=== PATIENT | female | born 1960 | race Caucasian/White ===

== ENCOUNTER → 2016-06-19 | Outpatient (CLI) | payer BC ==
[~2016-06-19] MED LIST: /GLIP10TAB PO; /PRAV20TA PO; ACET650S3 PO; ASPI81TA85 PO; LISI5TAB PO; LOPI600T PO; LOVA1CAP16 PO; LOVA1CAP17 PO; METO100T PO; OMEP10CASR PO; PRAV40TA PO; RANI150I2 IJ; RANI1TAB38 PO
[2016-06-19 12:12] LABS: MEAN CORPUSCULAR HEMOGLOBIN 31.3 pg (27.0-33.0); MEAN CORPUSCULAR HGB CONC 35.2 g/dl (32.0-36.5); RED CELL DISTRIBUTION WIDTH 13.3 % (11.5-14.5); WHITE BLOOD COUNT 12.2 K/mm3 (4.0-10.0)
[2016-06-19 12:37] LABS: ALBUMIN 4.3 GM/DL (3.2-5.2); ALBUMIN/GLOBULIN RATIO 1.23 (1.00-1.93); ALKALINE PHOSPHATASE 110 U/L (45-117); ALT/SGPT 24 U/L (12-78); ANION GAP 11 MEQ/L (8-16); AST/SGOT 12 U/L (15-37); BILIRUBIN,TOTAL 0.7 MG/DL (0.2-1.0); BLOOD UREA NITROGEN 22 MG/DL (7-18); CALCIUM LEVEL 9.9 MG/DL (8.5-10.1); CARBON DIOXIDE LEVEL 25 MEQ/L (21-32); CHLORIDE LEVEL 101 MEQ/L (98-107); CHOLESTEROL LEVEL 276 MG/DL (<200); CREATININE FOR GFR 1.13 MG/DL (0.55-1.02); GLOMERULAR FILTRATION RATE 53.4 (>51); GLUCOSE, FASTING 153 MG/DL (70-105); POTASSIUM SERUM 4.3 MEQ/L (3.5-5.1); SODIUM LEVEL 137 MEQ/L (136-145); TOTAL PROTEIN 7.8 GM/DL (6.4-8.2); TRIGLYCERIDES LEVEL 497 MG/DL (<150)
== END | disposition home or self-care (01) ==
LOC: M LAB 10:25
PROVIDERS: ATTEND Physician Assistant Medical
DX: E11.9 Type 2 diabetes mellitus without complications (principal); E78.2 Mixed hyperlipidemia; I10 Essential (primary) hypertension; R53.83 Other fatigue

== ENCOUNTER 2016-07-07 18:15 | Emergency (ER) | payer BC ==
[2016-07-07] MEDS ORDERED: ONDANSETRON 4MG/2ML VIAL (J2405) As Ordered ONE (21:19)
[2016-07-07] MEDS ORDERED: MORPHINE 4 MG/ML 1ML SYRINGE As Ordered ONE (21:19)
[2016-07-07 21:43] LABS: BASO # 0.2 K/mm3 (0.0-0.2); BASO % 1.3 % (0.0-1.0); EOS # 0.4 K/mm3 (0.0-0.50); EOS % 3.4 % (0.0-3.0); LARGE UNSTAINED CELL # 0.2 K/mm3 (0.0-0.4); LARGE UNSTAINED CELL % 1.4 % (0.0-4.0); LYMPH # 2.5 K/mm3 (1.5-4.5); LYMPH % 19.2 % (24.0-44.0); MEAN CORPUSCULAR HGB CONC 33.2 g/dl (32.0-36.5); MEAN CORPUSCULAR VOLUME 90.6 fl (80.0-96.0); MONO # 0.5 K/mm3 (0.0-0.8); MONO % 3.8 % (0.0-5.0); NEUTROPHILS # 9.4 K/mm3 (1.8-7.7); NEUTROPHILS % 70.9 % (36.0-66.0); PLATELET COUNT, AUTOMATED 196 k/mm3 (150-450); WHITE BLOOD COUNT 13.2 K/mm3 (4.0-10.0)
[2016-07-07 21:54] LABS: ADD MORPHOLOGY? YES
[2016-07-07 22:08] LABS: ALBUMIN 4.3 GM/DL (3.2-5.2); ALBUMIN/GLOBULIN RATIO 1.13 (1.00-1.93); BILIRUBIN,DIRECT 0.1 MG/DL (0.0-0.2); BILIRUBIN,TOTAL 0.4 MG/DL (0.2-1.0); CALCIUM LEVEL 9.8 MG/DL (8.5-10.1); CREATININE FOR GFR 1.46 MG/DL (0.55-1.02); GLOMERULAR FILTRATION RATE 39.7 (>51); POTASSIUM SERUM 4.3 MEQ/L (3.5-5.1); TOTAL PROTEIN 8.1 GM/DL (6.4-8.2)
[2016-07-07] MEDS ORDERED: ISOVUE-370 76% 100ML VIAL (Q9967) As Ordered ONE (23:40)
--- NOTE | 2016-07-08 00:20 | REPUSA ---
CT of the abdomen and pelvis without contrast Clinical statement: Pain. Technique: Multiple axial CT images were obtained from the base of the lungs to the floor of the pelv is utilizing 5 mm axial slices without administration of contrast. Coronal and sagittal reconstructio ns were also obtained. Comparison: 06/26/2015. Findings: Chest: The visualized lung bases are clear. Abdomen: The kidneys are normal in size bilaterally. There is mild cortical scarring in the inferior aspect of the left kidney. There is no evidence of hydronephrosis or nephrolithiasis. The liver, sple en, pancreas, gallbladder and adrenal glands are unremarkable. The aorta demonstrates normal caliber and contour. There is no abdominal lymphadenopathy or ascites. Pelvis: The bowel is unremarkable, with no obstructive or inflammatory changes. The urinary bladder i s within normal limits. There is no pelvic lymphadenopathy or ascites. The other pelvic structures ap pear unremarkable. Bones: There are no suspicious osseous abnormalities seen. Impression: Unremarkable CT examination of the abdomen and pelvis. No focal abnormality to explain th e patient's pain.
[2016-07-08] MEDS ORDERED: ONDANSETRON 4MG/2ML VIAL (J2405) As Ordered ONE (01:08)
[2016-07-08 01:36] LABS: CREATININE FOR GFR 1.3 MG/DL (0.55-1.02); GLOMERULAR FILTRATION RATE 45.4 (>51)
--- NOTE | 2016-07-08 02:32 | EDDOCDS ---
Physician Documentation [facility] Name: Ana Cristina Lazo Age: 56 yrs Sex: Female : 1960 Arrival Date: 07/07/2016 Time: 18:15 Bed I5 / M5 Private MD: Pablo Fairchild G Disposition: 07/08/16 02:14 Discharged to Home/Self Care. Impression: Unspecified abdominal pain, Abnormal finding of blood chemistry, unspecified - ELEVATED CREATININE, Nausea. - Condition is Stable. - Discharge Instructions: Abdominal Pain, Adult, Nausea, Adult. - Prescriptions for Reglan 10 mg Oral Tablet - take 1 tablet by ORAL route every 6 hours take 30 minutes before meals and at bedtime; 20 tablet. Ultram 50 mg Oral Tablet - take 1 tablet by ORAL route every 6 hours As needed MDD: 4 tabs; 10 tablet. - Medication Reconciliation, Local Pharmacy Hours form. - Follow up: Pablo Fairchild; When: Tomorrow; Reason: Recheck today's complaints, Continuance of care. - Problem is new. - Symptoms have improved. - Notes: USE MEDICATIONS INSTRUTCED, FOLLOW UP WITH YOUR DOCTOR TOMORROW, RETURN TO THE ER IF THE SYMPTOMS WORSEN OR BECOME CONCERNING Historical: - Allergies: contrast dye; - Home Meds: 1. Zofran (as hydrochloride) 4 mg Oral tab every 8 hours prn (Last dose: 07/07/2016 12:30) 2. ranitidine HCl 150 mg Oral tab 1 tab 2 times per day 3. omeprazole 20 mg Oral cpDR 1 cap once daily 4. glipizide 10 mg Oral tab 1 tab 2 times per day 5. lisinopril 10 mg Oral tab 1 tab once daily 6. gemfibrozil 600 mg Oral tab 1 tab 2 times per day 7. pravastatin 80 mg oral tab 1 tab once daily 8. Januvia 100 mg oral tab 1 tab once daily - PMHx: Diabetes - NIDDM: controlled; Hypercholesterolemia; Hypertension; pancreatitis; - PSHx: Hysterectomy; Appendectomy; Tonsillectomy; - Social history: Smoking status: Patient uses tobacco products, current every day smoker. No barriers to communication noted, The patient speaks fluent Albanian, Speaks appropriately for age. - Family history: Not pertinent. - : The pt / caregiver states he / she is not on anticoagulants. Home medication list is obtained from the patient. - Exposure Risk Screening:: None identified. 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 1 in. (154.94 cm) (R); Pain 7/10; 20:01 BP 105 / 59; Pulse 122; Resp 18; Temp 97.9(O); Pulse Ox 97% on R/A; Pain 7/10; ld5 20:03 ld5 22:15 Resp 16 S; ttb 22:24 BP 125 / 72; Pulse 78; Resp 16; Pulse Ox 100% on R/A; Pain 3/10; ttb / 02:28 BP 98 / 53; Pulse 84; Resp 18; Temp 97.1; Pulse Ox 95% on R/A; Pain 2/10; ld5 07/07 18:18 Body Mass Index 25.51 (61.23 kg, 154.94 cm) gr2 07/07 20:03 see vital record ld5 MDM: 20:15 [facility] Payment Agreement was scanned into [employer] and attached to record. gb 20:55 Financial registration complete. gb 21:07 Undress patient appropriately for examination ordered. ck7 21:07 morphine 4 mg IVP once ordered. ck7 21:07 Ondansetron 4 mg IVP once ordered. ck7 21:07 IV Saline Lock ordered. ck7 21:07 NS 0.9% 1000 ml IV at bolus once ordered. ck7 21:07 Accucheck ordered. ck7 21:08 Amylase Ordered. EDMS 21:08 Basic Metabolic Profile Ordered. EDMS 21:08 CBC with Diff Ordered. EDMS 21:08 Lipase Ordered. EDMS 21:08 Liver Profile Ordered. EDMS 21:08 Urinalysis Ordered. EDMS 21:09 Urine Culture Ordered. EDMS 21:10 NOTHING BY MOUTH+DIET ordered. EDMS 21:32 Fingerstick Blood Sugar Ordered. EDMS 21:46 Urinalysis Reviewed. ck7 21:46 Fingerstick Blood Sugar Reviewed. ck7 22:39 Basic Metabolic Profile Reviewed. ck7 22:39 CBC with Diff Reviewed. ck7 22:39 Amylase Reviewed. ck7 22:39 Lipase Reviewed. ck7 22:39 Liver Profile Reviewed. ck7 22:39 RBC MORPH PROF NO CHARGE Reviewed. ck7 23:36 NS 0.9% 1000 ml IV at bolus once ordered. ck7 23:49 CT ABD & PELVIS: No Contrast Ordered. EDMS 07/08 00:40 CT ABD & PELVIS: No Contrast Reviewed. ck7 01:06 Ondansetron 4 mg IVP once ordered. ck7 01:44 Creatinine Reviewed. ck7 Point of Care Testing: Blood Glucose: 07/07 21:27 Blood Glucose: 215 mg/dL; [facility] Ranges: Administered Medications: 21:28 Drug: NS 0.9% 1000 ml [sodium chloride 0.9 % intravenous solution] Route: IV; Rate: ttb bolus; Site: left antecubital; 07/08 00:16 Follow up: Response: No Adverse Reaction; IV Status: Completed infusion; IV Intake: ttb 1000ml 07/07 21:30 Drug: morphine 4 mg [morphine 4 mg/mL intravenous cartridge (1 mL)] Route: IVP; Site: ttb left antecubital; 22:15 Follow up: Resp 16 bpm Spontaneous; Response: Confirmed pt not driving.; No Adverse ttb Reaction; Pain is decreased 21:30 Drug: Ondansetron 4 mg [ondansetron HCl 2 mg/mL intravenous solution (2 mL)] Route: ttb IVP; Site: left antecubital; 07/08 00:16 Drug: NS 0.9% 1000 ml [sodium chloride 0.9 % intravenous solution] Route: IV; Rate: ttb bolus; Site: left antecubital; 01:11 Drug: Ondansetron 4 mg [ondansetron HCl 2 mg/mL intravenous solution (2 mL)] Route: mlc IVP; Site: left antecubital; 01:52 Follow up: Response: Nausea is decreased [facility] [place]: Dispatcher [employer] EDMS Ida Verdugo, RN RN srm Bree Arroyo, Emre Reg Jessica Tong RN RN ld5 Nadir Jacob RPA-C [id number] Levi, Johnna, RN RN ttb Jacobo, Roxanne RN mlc The chart was reviewed and I authenticate all verbal orders and agree with the evaluation and treatment provided.Corrections: (The following items were deleted from the chart) 07/07 23:50 18:28 Allergies: no known allergies; srm ttb 23:59 23:37 CT ABD & PELVIS WITH CONTRAST+CT ordered. EDMS EDMS 07/08 01:09 00:54 CREATININE+LAB ordered. EDMS EDMS Attachments: 07/07 20:15 [facility] [place] gb MTDD
--- NOTE | 2016-07-08 02:32 | EDDOCDS ---
Nurse's Notes [facility] Name: Ana Cristina Lazo Age: 56 yrs Sex: Female : 1960 Arrival Date: 07/07/2016 Time: 18:15 Bed I5 / M5 Private MD: Pablo Fairchild G Diagnosis: Unspecified abdominal pain;Abnormal finding of blood chemistry, unspecified-ELEVATED CREATININE;Nausea Presentation: 07/07 18:22 Presenting complaint: Patient states: i had a shot a week ago and i think it acted up srm my Pancrease kaylan been sick ever since. - trulicity 0.75mg/5ml was given wed for diabetes. severe belly, back pain, nausea vomiting, bloating. PMD aware and was given zofran for nausea but its not working. Acute neurological deficits are not present. Mechanism of Injury: No Mechanism of Injury. Adult Sepsis Screening: The patient does not have new or worsening altered mentation. Patient's respiratory rate is less than 22. Systolic blood pressure is greater than 100. Patient has a qSOFA score of 0- Negative Sepsis Screen. Suicide/Homicide risk assessment- the patient denies having any suicidal and/or homicidal ideations and does not present with any other emotional, behavioral or mental health complaints. Status: Patient is not a chief service observer or dependent. Transition of care: patient was not received from another setting of care. 18:22 Acuity: VERONICA Level 3 srm 18:22 Method Of Arrival: Walkin/Carried/Asstd srm Triage Assessment: 18:28 General: Appears uncomfortable, Behavior is appropriate for age, cooperative. Pain: srm Pain currently is 7 out of 10 on a pain scale. HIV screening NA for this visit Offered previously. Musculoskeletal: No deficits noted. 20:03 I have visited this patient for a triage reassessment, Pt reports no change in symptoms ld5 since ER arrival. 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 Zofran (as hydrochloride) 4 mg Oral tab every 8 hours prn (Last dose: 07/07/2016 12:30) 2. ranitidine HCl 150 mg Oral tab 1 tab 2 times per day 3. omeprazole 20 mg Oral cpDR 1 cap once daily 4. glipizide 10 mg Oral tab 1 tab 2 times per day 5. lisinopril 10 mg Oral tab 1 tab once daily 6. gemfibrozil 600 mg Oral tab 1 tab 2 times per day 7. pravastatin 80 mg oral tab 1 tab once daily 8. Januvia 100 mg oral tab 1 tab once daily - PMHx: Diabetes - NIDDM: controlled; Hypercholesterolemia; Hypertension; pancreatitis; - PSHx: Hysterectomy; Appendectomy; Tonsillectomy; - Social history: Smoking status: Patient uses tobacco products, current every day smoker. No barriers to communication noted, The patient speaks fluent [place] Zealander, Speaks appropriately for age. - Family history: Not pertinent. - : The pt / caregiver states he / she is not on anticoagulants. Home medication list is obtained from the patient. - Exposure Risk Screening:: None identified. Screenin:37 Screening information is obtained from the patient. Fall risk: No risks identified. ttb Assistance ADL's: requires no assistance with activities of daily living. Abuse/DV Screen: The patient / caregiver reports he/she is: not in a situation that causes fear, pain or injury. Nutritional screening: No deficits noted. Advance Directives: Currently, there is no health care proxy. home support is adequate. Assessment: 21:37 General: Appears uncomfortable, well nourished, well groomed, Behavior is appropriate ttb for age, cooperative, pleasant. Pain: Location: RUQ Pain currently is 7 out of 10 on a pain scale. Pain radiates to around abd into back. Cardiovascular: Heart tones S1 S2 present Chest pain is denied. Respiratory: No deficits noted. Airway is patent Respiratory effort is even, unlabored, Breath sounds are clear in right upper lobe and left upper lobe Denies cough, shortness of breath. GI: Abdomen is non- distended Bowel sounds present X 4 quads. Abd is soft X 4 quads Abd is tender to palpation in right upper quadrant Reports diarrhea, upper abdominal pain, nausea, vomiting. Derm: Skin is normal. Injury Description: No known injury. 22:30 Adult Sepsis Screening: The patient does not have new or worsening altered mentation. ttb Patient's respiratory rate is less than 22. Systolic blood pressure is greater than 100. Patient has a qSOFA score of 0- Negative Sepsis Screen. 22:50 Reassessment: Patient appears in no apparent distress at this time. Patient states ttb feeling better. Patient states symptoms have improved. pain improved after meds. Awaiting results. Resting on stretcher. . 22:50 Neurological: Level of Consciousness is awake, alert. Respiratory: No deficits noted. ttb Airway is patent. 07/08 00:58 General: Appears in no apparent distress, comfortable, Behavior is cooperative. mlc General: IV fluids infusing per order. . Pain: Denies pain. Neurological: Level of Consciousness is awake, alert, Oriented to person, place, time. Respiratory: Airway is patent Respiratory effort is even, unlabored, Respiratory pattern is regular. Derm: Skin is normal. 01:12 Reassessment: pt c/o nausea, pt medicated per order. mlc 01:52 Reassessment: Patient appears in no apparent distress at this time. Patient states mlc feeling better. pt resting comfortably in bed. resp easy/unlabored. . 02:28 General: Appears in no apparent distress. Neurological: Level of Consciousness is ld5 awake, obeys commands. Respiratory: Airway is patent Respiratory effort is even, unlabored. Vital Signs: 07/07 18:18 BP 106 / 61; Pulse 122; Resp 18 S; Temp 95.8(O); Pulse Ox 99% on R/A; Weight 61.23 kg gr2 (R); Height 5 ft. 1 in. (154.94 cm) (R); Pain 7/10; 20:01 BP 105 / 59; Pulse 122; Resp 18; Temp 97.9(O); Pulse Ox 97% on R/A; Pain 7/10; ld5 20:03 ld5 22:15 Resp 16 S; ttb 22:24 BP 125 / 72; Pulse 78; Resp 16; Pulse Ox 100% on R/A; Pain 3/10; ttb 07/08 02:28 BP 98 / 53; Pulse 84; Resp 18; Temp 97.1; Pulse Ox 95% on R/A; Pain 2/10; ld5 07/07 18:18 Body Mass Index 25.51 (61.23 kg, 154.94 cm) gr2 07/07 20:03 see vital record ld5 Vitals: 18:18 Log In Time: July 07, 2016 at 18:18. gr2 ED Course: 18:17 Patient visited by Jermaine Kendall. gr2 18:17 Patient moved to Waiting gr2 18:18 Pablo Fairchild is Private Physician. gr2 18:19 Patient visited by Jermaine Kendall. gr2 18:19 Patient moved to Pre RCE gr2 18:24 Triage Initiated srm 19:59 Patient moved to Triage 3 ld5 20:02 Patient visited by Jessica Pennington,RN. ld5 20:03 Patient visited by Jessica Pennington,RN. ld5 20:15 [facility] Payment Agreement was scanned into [employer] and attached to record. gb 20:41 Nadir Jacob RPA-C is PHCP. ck7 20:41 Domi Frazier MD is Attending Physician. ck7 20:54 Patient visited by Nadir Jacob RPA-C. ck7 21:09 Patient moved to I5 / M5 ajs 21:26 Patient visited by Nadir Jacob RPA-C. ck7 21:36 Liver Profile Sent. ttb 21:37 The patient / caregiver is instructed regarding the plan of care and ED course. ttb Accompanied by Significant Other, Patient has correct armband on for positive identification. Placed in gown. Call light in reach. 21:37 Lipase Sent. ttb 21:37 CBC with Diff Sent. ttb 21:37 Basic Metabolic Profile Sent. ttb 21:37 Amylase Sent. ttb 21:37 Inserted peripheral IV: 20gauge IV in left antecubital area and blood collected. ttb Patient tolerated the procedure well. Labs drawn. (by ED staff). Urine collected. Clean catch specimen. 21:41 Patient visited by Johnna Sims RN. ttb 22:29 Patient visited by Johnna Sims RN. ttb 23:15 Patient visited by Johnna Sims RN. ttb 23:45 Patient visited by Nadir Jacob RPA-C. ck7 07/08 00:23 Patient visited by Nadir Jacob RPA-C. ck7 00:36 CT ABD & PELVIS: No Contrast Returned. EDMS 00:54 Patient visited by Nadir Jacob RPA-C. ck7 00:58 Patient visited by Roxanne Jacobo RN. mlc 01:12 Patient visited by Roxanne Jacobo RN. mlc 01:46 Patient visited by Nadir Jacob RPA-C. ck7 01:53 Patient visited by Roxanne Jacobo RN. [facility] [place] Pablo Fairchild is Referral Physician. ck7 02:28 Discontinued lock intact, bleeding controlled, pressure dressing applied, No ld5 redness/swelling at site. No procedures done that require assistance. 02:31 Patient visited by Jessica Pennington RN. ld5 Administered Medications: 07/07 21:28 Drug: NS 0.9% 1000 ml [sodium chloride 0.9 % intravenous solution] Route: IV; Rate: ttb bolus; Site: left antecubital; 07/08 00:16 Follow up: Response: No Adverse Reaction; IV Status: Completed infusion; IV Intake: ttb 1000ml 07/07 21:30 Drug: morphine 4 mg [morphine 4 mg/mL intravenous cartridge (1 mL)] Route: IVP; Site: ttb left antecubital; 22:15 Follow up: Resp 16 bpm Spontaneous; Response: Confirmed pt not driving.; No Adverse ttb Reaction; Pain is decreased 21:30 Drug: Ondansetron 4 mg [ondansetron HCl 2 mg/mL intravenous solution (2 mL)] Route: ttb IVP; Site: left antecubital; 07/08 00:16 Drug: NS 0.9% 1000 ml [sodium chloride 0.9 % intravenous solution] Route: IV; Rate: ttb bolus; Site: left antecubital; 01:11 Drug: Ondansetron 4 mg [ondansetron HCl 2 mg/mL intravenous solution (2 mL)] Route: mlc IVP; Site: left antecubital; 01:52 Follow up: Response: Nausea is decreased [facility] [place] Care Testing: Blood Glucose: 07/07 21:27 Blood Glucose: 215 mg/dL; [facility] Ranges: Intake: 07/08 00:16 IV: 1000.00ml; Total: 1000.00ml. ttb Order Results: Lab Order: Amylase; SPEC'M 07/07/16 21:34 Test: AMYLASE; Value: 76; Range: 25-115; Units: U/L; Status: F Lab Order: Basic Metabolic Profile; SPEC'M 07/07/16 21:34 Test: GLUCOSE, FASTING; Value: 200; Range: 70-105; Abnormal: Above high normal; Units: MG/DL; Status: F Test: BLOOD UREA NITROGEN; Value: 17; Range: 7-18; Units: MG/DL; Status: F Test: CREATININE FOR GFR; Value: 1.46; Range: 0.55-1.02; Abnormal: Above high normal; Units: MG/DL; Status: F Test: GLOMERULAR FILTRATION RATE; Value: 39.7; Range: >51; Abnormal: Below low normal; Status: F Test: SODIUM LEVEL; Value: 138; Range: 136-145; Units: MEQ/L; Status: F Test: POTASSIUM SERUM; Value: 4.3; Range: 3.5-5.1; Units: MEQ/L; Status: F Test: CHLORIDE LEVEL; Value: 102; Range: 98-107; Units: MEQ/L; Status: F Test: CARBON DIOXIDE LEVEL; Value: 24; Range: 21-32; Units: MEQ/L; Status: F Test: ANION GAP; Value: 12; Range: 8-16; Units: MEQ/L; Status: F Test: CALCIUM LEVEL; Value: 9.8; Range: 8.5-10.1; Units: MG/DL; Status: F Test Note: ; Units are mL/min/1.73 m2 Chronic Kidney Disease Staging per NKF: Stage I & II GFR >=60 Normal to Mildly Decreased Stage III GFR 30-59 Moderately Decreased Stage IV GFR 15-29 Severely Decreased Stage V GFR <15 Very Little GFR Left ESRD GFR <15 on NITROGLYCERIN SUPERVISOR Lab Order: CBC with Diff; SPEC'M 07/07/16 21:34 Test: WHITE BLOOD COUNT; Value: 13.2; Range: 4.0-10.0; Abnormal: Above high normal; Units: K/mm3; Status: F Test: RED BLOOD COUNT; Value: 5.05; Range: 4.00-5.40; Units: M/mm3; Status: F Test: HEMOGLOBIN; Value: 15.2; Range: 12.0-16.0; Units: g/dl; Status: F Test: HEMATOCRIT; Value: 45.8; Range: 36.0-47.0; Units: %; Status: F Test: MEAN CORPUSCULAR VOLUME; Value: 90.6; Range: 80.0-96.0; Units: fl; Status: F Test: MEAN CORPUSCULAR HEMOGLOBIN; Value: 30.0; Range: 27.0-33.0; Units: pg; Status: F Test: MEAN CORPUSCULAR HGB CONC; Value: 33.2; Range: 32.0-36.5; Units: g/dl; Status: F Test: RED CELL DISTRIBUTION WIDTH; Value: 13.0; Range: 11.5-14.5; Units: %; Status: F Test: PLATELET COUNT, AUTOMATED; Value: 196; Range: 150-450; Units: k/mm3; Status: F Test: NEUTROPHILS %; Value: 70.9; Range: 36.0-66.0; Abnormal: Above high normal; Units: %; Status: F Test: LYMPH %; Value: 19.2; Range: 24.0-44.0; Abnormal: Below low normal; Units: %; Status: F Test: MONO %; Value: 3.8; Range: 0.0-5.0; Units: %; Status: F Test: EOS %; Value: 3.4; Range: 0.0-3.0; Abnormal: Above high normal; Units: %; Status: F Test: BASO %; Value: 1.3; Range: 0.0-1.0; Abnormal: Above high normal; Units: %; Status: F Test: LARGE UNSTAINED CELL %; Value: 1.4; Range: 0.0-4.0; Units: %; Status: F Test: NEUTROPHILS #; Value: 9.4; Range: 1.8-7.7; Abnormal: Above high normal; Units: K/mm3; Status: F Test: LYMPH #; Value: 2.5; Range: 1.5-4.5; Units: K/mm3; Status: F Test: MONO #; Value: 0.5; Range: 0.0-0.8; Units: K/mm3; Status: F Test: EOS #; Value: 0.4; Range: 0.0-0.50; Units: K/mm3; Status: F Test: BASO #; Value: 0.2; Range: 0.0-0.2; Units: K/mm3; Status: F Test: LARGE UNSTAINED CELL #; Value: 0.2; Range: 0.0-0.4; Units: K/mm3; Status: F Lab Order: Lipase; [facility]' 07/07/16 21:34 Test: LIPASE; Value: 216; Range: 73-393; Units: U/L; Status: F Lab Order: Liver Profile; [facility]' 07/07/16 21:34 Test: AST/SGOT; Value: 22; Range: 15-37; Units: U/L; Status: F Test: ALT/SGPT; Value: 30; Range: 12-78; Units: U/L; Status: F Test: ALKALINE PHOSPHATASE; Value: 113; Range: 45-117; Units: U/L; Status: F Test: BILIRUBIN,TOTAL; Value: 0.4; Range: 0.2-1.0; Units: MG/DL; Status: F Test: BILIRUBIN,DIRECT; Value: 0.1; Range: 0.0-0.2; Units: MG/DL; Status: F Test: TOTAL PROTEIN; Value: 8.1; Range: 6.4-8.2; Units: GM/DL; Status: F Test: ALBUMIN; Value: 4.3; Range: 3.2-5.2; Units: GM/DL; Status: F Test: ALBUMIN/GLOBULIN RATIO; Value: 1.13; Range: 1.00-1.93; Status: F Lab Order: Urinalysis; [facility] 07/07/16 21:13 Test: APPEARANCE, URINE; Value: HAZY; Range: CLEAR; Status: F Test: COLOR, URINE; Value: YELLOW; Range: YELLOW; Status: F Test: PH,URINE; Value: 5.0; Range: 5.0-9.0; Units: UNITS; Status: F Test: SPECIFIC GRAVITY URINE AUTO; Value: 1.015; Range: 1.002-1.035; Status: F Test: PROTEIN, URINE AUTO; Value: 1+; Range: NEGATIVE; Abnormal: Above high normal; Units: mg/dL; Status: F Test: GLUCOSE, URINE (UA) AUTO; Value: 1+; Range: NEGATIVE; Abnormal: Above high normal; Units: mg/dL; Status: F Test: KETONE, URINE AUTO; Value: NEGATIVE; Range: NEGATIVE; Units: mg/dL; Status: F Test: UROBILINOGEN, URINE AUTO; Value: 0.2; Range: 0.0-2.0; Units: mg/dL; Status: F Test: BILIRUBIN, URINE AUTO; Value: NEGATIVE; Range: NEGATIVE; Status: F Test: NITRITE, URINE AUTO; Value: NEGATIVE; Range: NEGATIVE; Status: F Test: LEUKOCYTE ESTERASE, URINE AUTO; Value: NEGATIVE; Range: NEGATIVE; Status: F Test: BLOOD, URINE BLOOD; Value: NEGATIVE; Range: NEGATIVE; Status: F Test: WBC, URINE AUTO; Value: 3; Range: 0-3; Units: /HPF; Status: F Test: RBC, URINE AUTO; Value: 1; Range: 0-3; Units: /HPF; Status: F Test: BACTERIA, URINE AUTO; Value: NEGATIVE; Range: NEGATIVE; Status: F Test: SQUAMOUS EPITHELIAL CELL UR AU; Value: 1; Range: 0-6; Units: /HPF; Status: F Test: MUCUS, URINE; Value: SMALL; Range: NEGATIVE; Status: F Test: HYALINE CAST, URINE AUTO; Value: 1; Range: 0-1; Units: /LPF; Status: F Lab Order: Fingerstick Blood Sugar; SPEC'M 07/07/16 21:12 Test: BEDSIDE GLUCOSE; Value: 215; Range: 70-105; Abnormal: Above high normal; Units: MG/DL; Status: F Lab Order: RBC MORPH PROF NO CHARGE; SPEC'M 07/07/16 21:34 Test: RBC MORPHOLOGY; Value: NORMAL; Status: F Test: PLATELET ESTIMATE; Value: NORMAL; Range: NORMAL; Status: F Lab Order: Creatinine; SPEC'M 07/08/16 00:55 Test: CREATININE FOR GFR; Value: 1.30; Range: 0.55-1.02; Abnormal: Above high normal; Units: MG/DL; Status: F Test: GLOMERULAR FILTRATION RATE; Value: 45.4; Range: >51; Abnormal: Below low normal; Status: F Test Note: ; Units are mL/min/1.73 m2 Chronic Kidney Disease Staging per NKF: Stage I & II GFR >=60 Normal to Mildly Decreased Stage III GFR 30-59 Moderately Decreased Stage IV GFR 15-29 Severely Decreased Stage V GFR <15 Very Little GFR Left ESRD GFR <15 on NITROGLYCERIN SUPERVISOR Radiology Order: CT ABD & PELVIS: No Contrast Test: CT ABD & PELVIS: No Contrast REASON FOR EXAMINATION: Abdomen Pain; ; CT of the abdomen and pelvis without contrast; Clinical statement: Pain.; Technique: Multiple axial CT images were obtained from the base of the lungs to the floor of the pelv; is utilizing 5 mm axial slices without administration of contrast. Coronal and sagittal reconstructio; ns were also obtained.; Comparison: 06/26/2015.; Findings:; Chest: The visualized lung bases are clear.; Abdomen: The kidneys are normal in size bilaterally. There is mild cortical scarring in the inferior; aspect of the left kidney. There is no evidence of hydronephrosis or nephrolithiasis. The liver, sple; en, pancreas, gallbladder and adrenal glands are unremarkable. The aorta demonstrates normal caliber; and contour. There is no abdominal lymphadenopathy or ascites.; Pelvis: The bowel is unremarkable, with no obstructive or inflammatory changes. The urinary bladder i; s within normal limits. There is no pelvic lymphadenopathy or ascites. The other pelvic structures ap; pear unremarkable.; Bones: There are no suspicious osseous abnormalities seen.; Impression: Unremarkable CT examination of the abdomen and pelvis. No focal abnormality to explain th; e patient's pain.; ; Outcome: 02:14 Discharge ordered by Provider. ck7 02:28 Discharge Assessment: Patient awake, alert and oriented x 3. No cognitive and/or ld5 functional deficits noted. Patient verbalized understanding of disposition instructions. patient administered narcotics - yes. Pt provided with safe discharge. The following High Risk Discharge criteria are identified: None. Discharged to home ambulatory. Condition: stable. Discharge instructions given to patient, Instructed on discharge instructions, follow up and referral plans. medication usage, no driving heavy equipment, Demonstrated understanding of instructions, medications, Pt was receptive of discharge instructions/ teaching. Prescriptions given X 2. CT Study completed. Property :Personal belongings accompany Pt. 02:31 Patient left the ED. ld5 Signatures: Dispatcher [employer] EDMS Ida Verdugo, RN RN Bree Figueroa, Reg Reg Jessica Tong RN RN ld5 Julia Stewart Jane, RN RN cjh Kwaczala, Christopher, RPA-C RPA-Cck7 Johnna Sims RN RN ttb Raymond Gainslee gr2 Roxanne Jacobo RN RN mlc Corrections: (The following items were deleted from the chart) 07/07 23:50 18:28 Allergies: no known allergies; [facility] ttb 07/08 01:09 00:58 CREATININE+LAB sent. mlc EDMS MTDD
--- NOTE | 2016-07-10 03:32 | EDDOCDS ---
Physician Documentation [facility] Name: Ana Cristina Lazo Age: 56 yrs Sex: Female : 1960 Arrival Date: 07/07/2016 Time: 18:15 Bed I5 / M5 Private MD: Pablo Fairchild G Disposition: 07/08/16 02:14 Discharged to Home/Self Care. Impression: Unspecified abdominal pain, Abnormal finding of blood chemistry, unspecified - ELEVATED CREATININE, Nausea. - Condition is Stable. - Discharge Instructions: Abdominal Pain, Adult, Nausea, Adult. - Prescriptions for Reglan 10 mg Oral Tablet - take 1 tablet by ORAL route every 6 hours take 30 minutes before meals and at bedtime; 20 tablet. Ultram 50 mg Oral Tablet - take 1 tablet by ORAL route every 6 hours As needed MDD: 4 tabs; 10 tablet. - Medication Reconciliation, Local Pharmacy Hours form. - Follow up: Pablo Fairchild; When: Tomorrow; Reason: Recheck today's complaints, Continuance of care. - Problem is new. - Symptoms have improved. - Notes: USE MEDICATIONS INSTRUTCED, FOLLOW UP WITH YOUR DOCTOR TOMORROW, RETURN TO THE ER IF THE SYMPTOMS WORSEN OR BECOME CONCERNING Historical: - Allergies: contrast dye; - Home Meds: 1. Zofran (as hydrochloride) 4 mg Oral tab every 8 hours prn (Last dose: 07/07/2016 12:30) 2. ranitidine HCl 150 mg Oral tab 1 tab 2 times per day 3. omeprazole 20 mg Oral cpDR 1 cap once daily 4. glipizide 10 mg Oral tab 1 tab 2 times per day 5. lisinopril 10 mg Oral tab 1 tab once daily 6. gemfibrozil 600 mg Oral tab 1 tab 2 times per day 7. pravastatin 80 mg oral tab 1 tab once daily 8. Januvia 100 mg oral tab 1 tab once daily - PMHx: Diabetes - NIDDM: controlled; Hypercholesterolemia; Hypertension; pancreatitis; - PSHx: Hysterectomy; Appendectomy; Tonsillectomy; - Social history: Smoking status: Patient uses tobacco products, current every day smoker. No barriers to communication noted, The patient speaks fluent Icelandic, Speaks appropriately for age. - Family history: Not pertinent. - : The pt / caregiver states he / she is not on anticoagulants. Home medication list is obtained from the patient. - Exposure Risk Screening:: None identified. 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 1 in. (154.94 cm) (R); Pain 7/10; 20:01 BP 105 / 59; Pulse 122; Resp 18; Temp 97.9(O); Pulse Ox 97% on R/A; Pain 7/10; ld5 20:03 ld5 22:15 Resp 16 S; ttb 22:24 BP 125 / 72; Pulse 78; Resp 16; Pulse Ox 100% on R/A; Pain 3/10; ttb / 02:28 BP 98 / 53; Pulse 84; Resp 18; Temp 97.1; Pulse Ox 95% on R/A; Pain 2/10; ld5 07/07 18:18 Body Mass Index 25.51 (61.23 kg, 154.94 cm) gr2 07/07 20:03 see vital record ld5 MDM: 20:15 [facility], [facility]1983 Payment Agreement was scanned into [employer] and attached to record. gb 20:55 Financial registration complete. gb 21:07 Undress patient appropriately for examination ordered. ck7 21:07 morphine 4 mg IVP once ordered. ck7 21:07 Ondansetron 4 mg IVP once ordered. ck7 21:07 IV Saline Lock ordered. ck7 21:07 NS 0.9% 1000 ml IV at bolus once ordered. ck7 21:07 Accucheck ordered. ck7 21:08 Amylase Ordered. EDMS 21:08 Basic Metabolic Profile Ordered. EDMS 21:08 CBC with Diff Ordered. EDMS 21:08 Lipase Ordered. EDMS 21:08 Liver Profile Ordered. EDMS 21:08 Urinalysis Ordered. EDMS 21:09 Urine Culture Ordered. EDMS 21:10 NOTHING BY MOUTH+DIET ordered. EDMS 21:32 Fingerstick Blood Sugar Ordered. EDMS 21:46 Urinalysis Reviewed. ck7 21:46 Fingerstick Blood Sugar Reviewed. ck7 22:39 Basic Metabolic Profile Reviewed. ck7 22:39 CBC with Diff Reviewed. ck7 22:39 Amylase Reviewed. ck7 22:39 Lipase Reviewed. ck7 22:39 Liver Profile Reviewed. ck7 22:39 RBC MORPH PROF NO CHARGE Reviewed. ck7 23:36 NS 0.9% 1000 ml IV at bolus once ordered. ck7 23:49 CT ABD & PELVIS: No Contrast Ordered. EDMS 07/08 00:40 CT ABD & PELVIS: No Contrast Reviewed. ck7 01:06 Ondansetron 4 mg IVP once ordered. ck7 01:44 Creatinine Reviewed. ck7 10:08 T-Sheet-- Draft Copy was scanned into [employer] and attached to record. 07/09 09:10 Urine Culture Reviewed. ml Point of Care Testing: Blood Glucose: 07/07 21:27 Blood Glucose: 215 mg/dL; [facility] Ranges: Administered Medications: 21:28 Drug: NS 0.9% 1000 ml [sodium chloride 0.9 % intravenous solution] Route: IV; Rate: ttb bolus; Site: left antecubital; 07/08 00:16 Follow up: Response: No Adverse Reaction; IV Status: Completed infusion; IV Intake: ttb 1000ml 07/07 21:30 Drug: morphine 4 mg [morphine 4 mg/mL intravenous cartridge (1 mL)] Route: IVP; Site: ttb left antecubital; 22:15 Follow up: Resp 16 bpm Spontaneous; Response: Confirmed pt not driving.; No Adverse ttb Reaction; Pain is decreased 21:30 Drug: Ondansetron 4 mg [ondansetron HCl 2 mg/mL intravenous solution (2 mL)] Route: ttb IVP; Site: left antecubital; 07/08 00:16 Drug: NS 0.9% 1000 ml [sodium chloride 0.9 % intravenous solution] Route: IV; Rate: ttb bolus; Site: left antecubital; 01:11 Drug: Ondansetron 4 mg [ondansetron HCl 2 mg/mL intravenous solution (2 mL)] Route: mlc IVP; Site: left antecubital; 01:52 Follow up: Response: Nausea is decreased [facility] [place] Signatures: Dispatcher [employer] EDSC Rc Payton MD MD ml Michelson, Staci, RN RN Bree Figueroa, Emre Reg Ed [place],RN RN ld5 Nadir Jacob, RPA-C RPA-Cck7 Johnna Sims, RN RN ttb Roxanne Jacobo RN mlc The chart was reviewed and I authenticate all verbal orders and agree with the evaluation and treatment provided.Corrections: (The following items were deleted from the chart) 07/07 23:50 18:28 Allergies: no known allergies; srm ttb 23:59 23:37 CT ABD & PELVIS WITH CONTRAST+CT ordered. EDMS EDMS 07/08 01:09 00:54 CREATININE+LAB ordered. EDMS EDMS Attachments: 07/07 20:15 [facility] Payment Agreement gb 07/08 10:08 T-Sheet-- Draft Copy gb Chart Complete MTDD
--- NOTE | 2016-07-10 03:32 | EDDOCDS ---
Physician Documentation [facility] Name: Ana Cristina Lazo Age: 56 yrs Sex: Female : 1960 Arrival Date: 07/07/2016 Time: 18:15 Bed I5 / M5 Private MD: Pablo Fairchild G Disposition: 07/08/16 02:14 Discharged to Home/Self Care. Impression: Unspecified abdominal pain, Abnormal finding of blood chemistry, unspecified - ELEVATED CREATININE, Nausea. - Condition is Stable. - Discharge Instructions: Abdominal Pain, Adult, Nausea, Adult. - Prescriptions for Reglan 10 mg Oral Tablet - take 1 tablet by ORAL route every 6 hours take 30 minutes before meals and at bedtime; 20 tablet. Ultram 50 mg Oral Tablet - take 1 tablet by ORAL route every 6 hours As needed MDD: 4 tabs; 10 tablet. - Medication Reconciliation, Local Pharmacy Hours form. - Follow up: Pablo Fairchild; When: Tomorrow; Reason: Recheck today's complaints, Continuance of care. - Problem is new. - Symptoms have improved. - Notes: USE MEDICATIONS INSTRUTCED, FOLLOW UP WITH YOUR DOCTOR TOMORROW, RETURN TO THE ER IF THE SYMPTOMS WORSEN OR BECOME CONCERNING Historical: - Allergies: contrast dye; - Home Meds: 1. Zofran (as hydrochloride) 4 mg Oral tab every 8 hours prn (Last dose: 07/07/2016 12:30) 2. ranitidine HCl 150 mg Oral tab 1 tab 2 times per day 3. omeprazole 20 mg Oral cpDR 1 cap once daily 4. glipizide 10 mg Oral tab 1 tab 2 times per day 5. lisinopril 10 mg Oral tab 1 tab once daily 6. gemfibrozil 600 mg Oral tab 1 tab 2 times per day 7. pravastatin 80 mg oral tab 1 tab once daily 8. Januvia 100 mg oral tab 1 tab once daily - PMHx: Diabetes - NIDDM: controlled; Hypercholesterolemia; Hypertension; pancreatitis; - PSHx: Hysterectomy; Appendectomy; Tonsillectomy; - Social history: Smoking status: Patient uses tobacco products, current every day smoker. No barriers to communication noted, The patient speaks fluent French, Speaks appropriately for age. - Family history: Not pertinent. - : The pt / caregiver states he / she is not on anticoagulants. Home medication list is obtained from the patient. - Exposure Risk Screening:: None identified. 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 1 in. (154.94 cm) (R); Pain 7/10; 20:01 BP 105 / 59; Pulse 122; Resp 18; Temp 97.9(O); Pulse Ox 97% on R/A; Pain 7/10; ld5 20:03 ld5 22:15 Resp 16 S; ttb 22:24 BP 125 / 72; Pulse 78; Resp 16; Pulse Ox 100% on R/A; Pain 3/10; ttb / 02:28 BP 98 / 53; Pulse 84; Resp 18; Temp 97.1; Pulse Ox 95% on R/A; Pain 2/10; ld5 07/07 18:18 Body Mass Index 25.51 (61.23 kg, 154.94 cm) gr2 07/07 20:03 see vital record ld5 MDM: 20:15 [facility] Payment Agreement was scanned into [employer] and attached to record. gb 20:55 Financial registration complete. gb 21:07 Undress patient appropriately for examination ordered. ck7 21:07 morphine 4 mg IVP once ordered. ck7 21:07 Ondansetron 4 mg IVP once ordered. ck7 21:07 IV Saline Lock ordered. ck7 21:07 NS 0.9% 1000 ml IV at bolus once ordered. ck7 21:07 Accucheck ordered. ck7 21:08 Amylase Ordered. EDMS 21:08 Basic Metabolic Profile Ordered. EDMS 21:08 CBC with Diff Ordered. EDMS 21:08 Lipase Ordered. EDMS 21:08 Liver Profile Ordered. EDMS 21:08 Urinalysis Ordered. EDMS 21:09 Urine Culture Ordered. EDMS 21:10 NOTHING BY MOUTH+DIET ordered. EDMS 21:32 Fingerstick Blood Sugar Ordered. EDMS 21:46 Urinalysis Reviewed. ck7 21:46 Fingerstick Blood Sugar Reviewed. ck7 22:39 Basic Metabolic Profile Reviewed. ck7 22:39 CBC with Diff Reviewed. ck7 22:39 Amylase Reviewed. ck7 22:39 Lipase Reviewed. ck7 22:39 Liver Profile Reviewed. ck7 22:39 RBC MORPH PROF NO CHARGE Reviewed. ck7 23:36 NS 0.9% 1000 ml IV at bolus once ordered. ck7 23:49 CT ABD & PELVIS: No Contrast Ordered. EDMS 07/08 00:40 CT ABD & PELVIS: No Contrast Reviewed. ck7 01:06 Ondansetron 4 mg IVP once ordered. ck7 01:44 Creatinine Reviewed. ck7 10:08 T-Sheet-- Draft Copy was scanned into [employer] and attached to record. 07/09 09:10 Urine Culture Reviewed. ml Point of Care Testing: Blood Glucose: 07/07 21:27 Blood Glucose: 215 mg/dL; [facility] Ranges: Administered Medications: 21:28 Drug: NS 0.9% 1000 ml [sodium chloride 0.9 % intravenous solution] Route: IV; Rate: ttb bolus; Site: left antecubital; 07/08 00:16 Follow up: Response: No Adverse Reaction; IV Status: Completed infusion; IV Intake: ttb 1000ml 07/07 21:30 Drug: morphine 4 mg [morphine 4 mg/mL intravenous cartridge (1 mL)] Route: IVP; Site: ttb left antecubital; 22:15 Follow up: Resp 16 bpm Spontaneous; Response: Confirmed pt not driving.; No Adverse ttb Reaction; Pain is decreased 21:30 Drug: Ondansetron 4 mg [ondansetron HCl 2 mg/mL intravenous solution (2 mL)] Route: ttb IVP; Site: left antecubital; 07/08 00:16 Drug: NS 0.9% 1000 ml [sodium chloride 0.9 % intravenous solution] Route: IV; Rate: ttb bolus; Site: left antecubital; 01:11 Drug: Ondansetron 4 mg [ondansetron HCl 2 mg/mL intravenous solution (2 mL)] Route: mlc IVP; Site: left antecubital; 01:52 Follow up: Response: Nausea is decreased [facility] Signatures: Dispatcher [employer] EDMD Rc Payton MD MD ml Michelson, Staci, RN RN Bree Figueroa, Emre Reg Ed [place],RN RN ld5 Nadir Jacob, RPA-C [id number] Johnna Sims, RN RN ttb Roxanne Jacobo RN mlc The chart was reviewed and I authenticate all verbal orders and agree with the evaluation and treatment provided.Corrections: (The following items were deleted from the chart) 07/07 23:50 18:28 Allergies: no known allergies; srm ttb 23:59 23:37 CT ABD & PELVIS WITH CONTRAST+CT ordered. EDMS EDMS 07/08 01:09 00:54 CREATININE+LAB ordered. EDMS EDMS Attachments: 07/07 20:15 [facility] Payment Agreement gb 07/08 10:08 T-Sheet-- Draft Copy gb Chart Complete MTDD
--- NOTE | 2016-07-10 03:33 | EDDOCDS ---
Nurse's Notes [facility] Name: Ana Cristina Lazo Age: 56 yrs Sex: Female : 1960 Arrival Date: 07/07/2016 Time: 18:15 Bed I5 / M5 Private MD: Pablo Fairchild G Diagnosis: Unspecified abdominal pain;Abnormal finding of blood chemistry, unspecified-ELEVATED CREATININE;Nausea Presentation: 07/07 18:22 Presenting complaint: Patient states: i had a shot a week ago and i think it acted up srm my Pancrease kaylan been sick ever since. - trulicity 0.75mg/5ml was given wed for diabetes. severe belly, back pain, nausea vomiting, bloating. PMD aware and was given zofran for nausea but its not working. Acute neurological deficits are not present. Mechanism of Injury: No Mechanism of Injury. Adult Sepsis Screening: The patient does not have new or worsening altered mentation. Patient's respiratory rate is less than 22. Systolic blood pressure is greater than 100. Patient has a qSOFA score of 0- Negative Sepsis Screen. Suicide/Homicide risk assessment- the patient denies having any suicidal and/or homicidal ideations and does not present with any other emotional, behavioral or mental health complaints. Status: Patient is not a slot service specialist or dependent. Transition of care: patient was not received from another setting of care. 18:22 Acuity: VERONICA Level 3 srm 18:22 Method Of Arrival: Walkin/Carried/Asstd srm Triage Assessment: 18:28 General: Appears uncomfortable, Behavior is appropriate for age, cooperative. Pain: srm Pain currently is 7 out of 10 on a pain scale. HIV screening NA for this visit Offered previously. Musculoskeletal: No deficits noted. 20:03 I have visited this patient for a triage reassessment, Pt reports no change in symptoms ld5 since ER arrival. 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 Zofran (as hydrochloride) 4 mg Oral tab every 8 hours prn (Last dose: 07/07/2016 12:30) 2. ranitidine HCl 150 mg Oral tab 1 tab 2 times per day 3. omeprazole 20 mg Oral cpDR 1 cap once daily 4. glipizide 10 mg Oral tab 1 tab 2 times per day 5. lisinopril 10 mg Oral tab 1 tab once daily 6. gemfibrozil 600 mg Oral tab 1 tab 2 times per day 7. pravastatin 80 mg oral tab 1 tab once daily 8. Januvia 100 mg oral tab 1 tab once daily - PMHx: Diabetes - NIDDM: controlled; Hypercholesterolemia; Hypertension; pancreatitis; - PSHx: Hysterectomy; Appendectomy; Tonsillectomy; - Social history: Smoking status: Patient uses tobacco products, current every day smoker. No barriers to communication noted, The patient speaks fluent Armenian, Speaks appropriately for age. - Family history: Not pertinent. - : The pt / caregiver states he / she is not on anticoagulants. Home medication list is obtained from the patient. - Exposure Risk Screening:: None identified. Screenin:37 Screening information is obtained from the patient. Fall risk: No risks identified. ttb Assistance ADL's: requires no assistance with activities of daily living. Abuse/DV Screen: The patient / caregiver reports he/she is: not in a situation that causes fear, pain or injury. Nutritional screening: No deficits noted. Advance Directives: Currently, there is no health care proxy. home support is adequate. Assessment: 21:37 General: Appears uncomfortable, well nourished, well groomed, Behavior is appropriate ttb for age, cooperative, pleasant. Pain: Location: RUQ Pain currently is 7 out of 10 on a pain scale. Pain radiates to around abd into back. Cardiovascular: Heart tones S1 S2 present Chest pain is denied. Respiratory: No deficits noted. Airway is patent Respiratory effort is even, unlabored, Breath sounds are clear in right upper lobe and left upper lobe Denies cough, shortness of breath. GI: Abdomen is non- distended Bowel sounds present X 4 quads. Abd is soft X 4 quads Abd is tender to palpation in right upper quadrant Reports diarrhea, upper abdominal pain, nausea, vomiting. Derm: Skin is normal. Injury Description: No known injury. 22:30 Adult Sepsis Screening: The patient does not have new or worsening altered mentation. ttb Patient's respiratory rate is less than 22. Systolic blood pressure is greater than 100. Patient has a qSOFA score of 0- Negative Sepsis Screen. 22:50 Reassessment: Patient appears in no apparent distress at this time. Patient states ttb feeling better. Patient states symptoms have improved. pain improved after meds. Awaiting results. Resting on stretcher. . 22:50 Neurological: Level of Consciousness is awake, alert. Respiratory: No deficits noted. ttb Airway is patent. 07/08 00:58 General: Appears in no apparent distress, comfortable, Behavior is cooperative. mlc General: IV fluids infusing per order. . Pain: Denies pain. Neurological: Level of Consciousness is awake, alert, Oriented to person, place, time. Respiratory: Airway is patent Respiratory effort is even, unlabored, Respiratory pattern is regular. Derm: Skin is normal. 01:12 Reassessment: pt c/o nausea, pt medicated per order. mlc 01:52 Reassessment: Patient appears in no apparent distress at this time. Patient states mlc feeling better. pt resting comfortably in bed. resp easy/unlabored. . 02:28 General: Appears in no apparent distress. Neurological: Level of Consciousness is ld5 awake, obeys commands. Respiratory: Airway is patent Respiratory effort is even, unlabored. Vital Signs: 07/07 18:18 BP 106 / 61; Pulse 122; Resp 18 S; Temp 95.8(O); Pulse Ox 99% on R/A; Weight 61.23 kg gr2 (R); Height 5 ft. 1 in. (154.94 cm) (R); Pain 7/10; 20:01 BP 105 / 59; Pulse 122; Resp 18; Temp 97.9(O); Pulse Ox 97% on R/A; Pain 7/10; ld5 20:03 ld5 22:15 Resp 16 S; ttb 22:24 BP 125 / 72; Pulse 78; Resp 16; Pulse Ox 100% on R/A; Pain 3/10; ttb 07/08 02:28 BP 98 / 53; Pulse 84; Resp 18; Temp 97.1; Pulse Ox 95% on R/A; Pain 2/10; ld5 07/07 18:18 Body Mass Index 25.51 (61.23 kg, 154.94 cm) gr2 07/07 20:03 see vital record ld5 Vitals: 18:18 Log In Time: July 07, 2016 at 18:18. gr2 ED Course: 18:17 Patient visited by Jermaine Kendall. gr2 18:17 Patient moved to Waiting gr2 18:18 Pablo Fairchild is Private Physician. gr2 18:19 Patient visited by Jermaine Kendall. gr2 18:19 Patient moved to Pre RCE gr2 18:24 Triage Initiated srm 19:59 Patient moved to Triage 3 ld5 20:02 Patient visited by Jessica Pennington,RN. ld5 20:03 Patient visited by Jessica Pennington,RN. ld5 20:15 [facility] Payment Agreement was scanned into Blackboard and attached to record. gb 20:41 Nadir Jacob RPA-C is PHCP. ck7 20:41 Domi Frazier MD is Attending Physician. ck7 20:54 Patient visited by Nadir Jacob RPA-C. ck7 21:09 Patient moved to I5 / M5 ajs 21:26 Patient visited by Nadir Jacob RPA-C. ck7 21:36 Liver Profile Sent. ttb 21:37 The patient / caregiver is instructed regarding the plan of care and ED course. ttb Accompanied by Significant Other, Patient has correct armband on for positive identification. Placed in gown. Call light in reach. 21:37 Lipase Sent. ttb 21:37 CBC with Diff Sent. ttb 21:37 Basic Metabolic Profile Sent. ttb 21:37 Amylase Sent. ttb 21:37 Inserted peripheral IV: 20gauge IV in left antecubital area and blood collected. ttb Patient tolerated the procedure well. Labs drawn. (by ED staff). Urine collected. Clean catch specimen. 21:41 Patient visited by Johnna iSms RN. ttb 22:29 Patient visited by Johnna Sims RN. ttb 23:15 Patient visited by Johnna Sims RN. ttb 23:45 Patient visited by Nadir Jacob RPA-C. ck7 07/08 00:23 Patient visited by Nadir Jacob RPA-C. ck7 00:36 CT ABD & PELVIS: No Contrast Returned. EDMS 00:54 Patient visited by Nadir Jacob RPA-C. ck7 00:58 Patient visited by Roxanne Jacobo RN. mlc 01:12 Patient visited by Roxanne Jacobo RN. mlc 01:46 Patient visited by Nadir Jacob RPA-C. ck7 01:53 Patient visited by Roxanne Jacobo RN. mlc 02:12 Pablo Fairchild is Referral Physician. ck7 02:28 Discontinued lock intact, bleeding controlled, pressure dressing applied, No ld5 redness/swelling at site. No procedures done that require assistance. 02:31 Patient visited by Jessica Pennington RN. ld5 10:08 T-Sheet-- Draft Copy was scanned into Blackboard and attached to record. gb Administered Medications: 07/07 21:28 Drug: NS 0.9% 1000 ml [sodium chloride 0.9 % intravenous solution] Route: IV; Rate: ttb bolus; Site: left antecubital; 07/08 00:16 Follow up: Response: No Adverse Reaction; IV Status: Completed infusion; IV Intake: ttb 1000ml 07/07 21:30 Drug: morphine 4 mg [morphine 4 mg/mL intravenous cartridge (1 mL)] Route: IVP; Site: ttb left antecubital; 22:15 Follow up: Resp 16 bpm Spontaneous; Response: Confirmed pt not driving.; No Adverse ttb Reaction; Pain is decreased 21:30 Drug: Ondansetron 4 mg [ondansetron HCl 2 mg/mL intravenous solution (2 mL)] Route: ttb IVP; Site: left antecubital; 07/08 00:16 Drug: NS 0.9% 1000 ml [sodium chloride 0.9 % intravenous solution] Route: IV; Rate: ttb bolus; Site: left antecubital; 01:11 Drug: Ondansetron 4 mg [ondansetron HCl 2 mg/mL intravenous solution (2 mL)] Route: mlc IVP; Site: left antecubital; 01:52 Follow up: Response: Nausea is decreased [facility] Testing: Blood Glucose: 07/07 21:27 Blood Glucose: 215 mg/dL; [facility] Ranges: Intake: 07/08 00:16 IV: 1000.00ml; Total: 1000.00ml. ttb Order Results: Lab Order: Amylase; SPEC'M 07/07/16 21:34 Test: AMYLASE; Value: 76; Range: 25-115; Units: U/L; Status: F Lab Order: Basic Metabolic Profile; SPEC'M 17 21:34 Test: GLUCOSE, FASTING; Value: 200; Range: 70-105; Abnormal: Above high normal; Units: MG/DL; Status: F Test: BLOOD UREA NITROGEN; Value: 17; Range: 7-18; Units: MG/DL; Status: F Test: CREATININE FOR GFR; Value: 1.46; Range: 0.55-1.02; Abnormal: Above high normal; Units: MG/DL; Status: F Test: GLOMERULAR FILTRATION RATE; Value: 39.7; Range: >51; Abnormal: Below low normal; Status: F Test: SODIUM LEVEL; Value: 138; Range: 136-145; Units: MEQ/L; Status: F Test: POTASSIUM SERUM; Value: 4.3; Range: 3.5-5.1; Units: MEQ/L; Status: F Test: CHLORIDE LEVEL; Value: 102; Range: 98-107; Units: MEQ/L; Status: F Test: CARBON DIOXIDE LEVEL; Value: 24; Range: 21-32; Units: MEQ/L; Status: F Test: ANION GAP; Value: 12; Range: 8-16; Units: MEQ/L; Status: F Test: CALCIUM LEVEL; Value: 9.8; Range: 8.5-10.1; Units: MG/DL; Status: F Test Note: ; Units are mL/min/1.73 m2 Chronic Kidney Disease Staging per NKF: Stage I & II GFR >=60 Normal to Mildly Decreased Stage III GFR 30-59 Moderately Decreased Stage IV GFR 15-29 Severely Decreased Stage V GFR <15 Very Little GFR Left ESRD GFR <15 on HAND TAPPER Lab Order: CBC with Diff; SPEC'M 07/07/16 21:34 Test: WHITE BLOOD COUNT; Value: 13.2; Range: 4.0-10.0; Abnormal: Above high normal; Units: K/mm3; Status: F Test: RED BLOOD COUNT; Value: 5.05; Range: 4.00-5.40; Units: M/mm3; Status: F Test: HEMOGLOBIN; Value: 15.2; Range: 12.0-16.0; Units: g/dl; Status: F Test: HEMATOCRIT; Value: 45.8; Range: 36.0-47.0; Units: %; Status: F Test: MEAN CORPUSCULAR VOLUME; Value: 90.6; Range: 80.0-96.0; Units: fl; Status: F Test: MEAN CORPUSCULAR HEMOGLOBIN; Value: 30.0; Range: 27.0-33.0; Units: pg; Status: F Test: MEAN CORPUSCULAR HGB CONC; Value: 33.2; Range: 32.0-36.5; Units: g/dl; Status: F Test: RED CELL DISTRIBUTION WIDTH; Value: 13.0; Range: 11.5-14.5; Units: %; Status: F Test: PLATELET COUNT, AUTOMATED; Value: 196; Range: 150-450; Units: k/mm3; Status: F Test: NEUTROPHILS %; Value: 70.9; Range: 36.0-66.0; Abnormal: Above high normal; Units: %; Status: F Test: LYMPH %; Value: 19.2; Range: 24.0-44.0; Abnormal: Below low normal; Units: %; Status: F Test: MONO %; Value: 3.8; Range: 0.0-5.0; Units: %; Status: F Test: EOS %; Value: 3.4; Range: 0.0-3.0; Abnormal: Above high normal; Units: %; Status: F Test: BASO %; Value: 1.3; Range: 0.0-1.0; Abnormal: Above high normal; Units: %; Status: F Test: LARGE UNSTAINED CELL %; Value: 1.4; Range: 0.0-4.0; Units: %; Status: F Test: NEUTROPHILS #; Value: 9.4; Range: 1.8-7.7; Abnormal: Above high normal; Units: K/mm3; Status: F Test: LYMPH #; Value: 2.5; Range: 1.5-4.5; Units: K/mm3; Status: F Test: MONO #; Value: 0.5; Range: 0.0-0.8; Units: K/mm3; Status: F Test: EOS #; Value: 0.4; Range: 0.0-0.50; Units: K/mm3; Status: F Test: BASO #; Value: 0.2; Range: 0.0-0.2; Units: K/mm3; Status: F Test: LARGE UNSTAINED CELL #; Value: 0.2; Range: 0.0-0.4; Units: K/mm3; Status: F Lab Order: Lipase; [facility] 07/07/16 21:34 Test: LIPASE; Value: 216; Range: 73-393; Units: U/L; Status: F Lab Order: Liver Profile; [facility] 07/07/16 21:34 Test: AST/SGOT; Value: 22; Range: 15-37; Units: U/L; Status: F Test: ALT/SGPT; Value: 30; Range: 12-78; Units: U/L; Status: F Test: ALKALINE PHOSPHATASE; Value: 113; Range: 45-117; Units: U/L; Status: F Test: BILIRUBIN,TOTAL; Value: 0.4; Range: 0.2-1.0; Units: MG/DL; Status: F Test: BILIRUBIN,DIRECT; Value: 0.1; Range: 0.0-0.2; Units: MG/DL; Status: F Test: TOTAL PROTEIN; Value: 8.1; Range: 6.4-8.2; Units: GM/DL; Status: F Test: ALBUMIN; Value: 4.3; Range: 3.2-5.2; Units: GM/DL; Status: F Test: ALBUMIN/GLOBULIN RATIO; Value: 1.13; Range: 1.00-1.93; Status: F Lab Order: Urinalysis; [facility] 07/07/16 21:13 Test: APPEARANCE, URINE; Value: HAZY; Range: CLEAR; Status: F Test: COLOR, URINE; Value: YELLOW; Range: YELLOW; Status: F Test: PH,URINE; Value: 5.0; Range: 5.0-9.0; Units: UNITS; Status: F Test: SPECIFIC GRAVITY URINE AUTO; Value: 1.015; Range: 1.002-1.035; Status: F Test: PROTEIN, URINE AUTO; Value: 1+; Range: NEGATIVE; Abnormal: Above high normal; Units: mg/dL; Status: F Test: GLUCOSE, URINE (UA) AUTO; Value: 1+; Range: NEGATIVE; Abnormal: Above high normal; Units: mg/dL; Status: F Test: KETONE, URINE AUTO; Value: NEGATIVE; Range: NEGATIVE; Units: mg/dL; Status: F Test: UROBILINOGEN, URINE AUTO; Value: 0.2; Range: 0.0-2.0; Units: mg/dL; Status: F Test: BILIRUBIN, URINE AUTO; Value: NEGATIVE; Range: NEGATIVE; Status: F Test: NITRITE, URINE AUTO; Value: NEGATIVE; Range: NEGATIVE; Status: F Test: LEUKOCYTE ESTERASE, URINE AUTO; Value: NEGATIVE; Range: NEGATIVE; Status: F Test: BLOOD, URINE BLOOD; Value: NEGATIVE; Range: NEGATIVE; Status: F Test: WBC, URINE AUTO; Value: 3; Range: 0-3; Units: /HPF; Status: F Test: RBC, URINE AUTO; Value: 1; Range: 0-3; Units: /HPF; Status: F Test: BACTERIA, URINE AUTO; Value: NEGATIVE; Range: NEGATIVE; Status: F Test: SQUAMOUS EPITHELIAL CELL UR AU; Value: 1; Range: 0-6; Units: /HPF; Status: F Test: MUCUS, URINE; Value: SMALL; Range: NEGATIVE; Status: F Test: HYALINE CAST, URINE AUTO; Value: 1; Range: 0-1; Units: /LPF; Status: F Lab Order: Urine Culture; SPEC'M 07/07/16 21:13 Test: URINE CULTURE; Value: <EXTERNAL COMMENT eCWMed> FULL REPORT IN LAB NOTES (eCW and Medent).; Status: F Test: URINE CULTURE; Value: URINE CULTURE RESULT SPECIMEN APPEARS CONTAMINATED; Status: F Lab Order: Fingerstick Blood Sugar; SPEC'M 07/07/16 21:12 Test: BEDSIDE GLUCOSE; Value: 215; Range: 70-105; Abnormal: Above high normal; Units: MG/DL; Status: F Lab Order: RBC MORPH PROF NO CHARGE; SPEC'M 07/07/16 21:34 Test: RBC MORPHOLOGY; Value: NORMAL; Status: F Test: PLATELET ESTIMATE; Value: NORMAL; Range: NORMAL; Status: F Lab Order: Creatinine; SPEC'M 07/08/16 00:55 Test: CREATININE FOR GFR; Value: 1.30; Range: 0.55-1.02; Abnormal: Above high normal; Units: MG/DL; Status: F Test: GLOMERULAR FILTRATION RATE; Value: 45.4; Range: >51; Abnormal: Below low normal; Status: F Test Note: ; Units are mL/min/1.73 m2 Chronic Kidney Disease Staging per NKF: Stage I & II GFR >=60 Normal to Mildly Decreased Stage III GFR 30-59 Moderately Decreased Stage IV GFR 15-29 Severely Decreased Stage V GFR <15 Very Little GFR Left ESRD GFR <15 on HAND TAPPER Radiology Order: CT ABD & PELVIS: No Contrast Test: CT ABD & PELVIS: No Contrast REASON FOR EXAMINATION: Abdomen Pain; ; CT of the abdomen and pelvis without contrast; Clinical statement: Pain.; Technique: Multiple axial CT images were obtained from the base of the lungs to the floor of the pelv; is utilizing 5 mm axial slices without administration of contrast. Coronal and sagittal reconstructio; ns were also obtained.; Comparison: 06/26/2015.; Findings:; Chest: The visualized lung bases are clear.; Abdomen: The kidneys are normal in size bilaterally. There is mild cortical scarring in the inferior; aspect of the left kidney. There is no evidence of hydronephrosis or nephrolithiasis. The liver, sple; en, pancreas, gallbladder and adrenal glands are unremarkable. The aorta demonstrates normal caliber; and contour. There is no abdominal lymphadenopathy or ascites.; Pelvis: The bowel is unremarkable, with no obstructive or inflammatory changes. The urinary bladder i; s within normal limits. There is no pelvic lymphadenopathy or ascites. The other pelvic structures ap; pear unremarkable.; Bones: There are no suspicious osseous abnormalities seen.; Impression: Unremarkable CT examination of the abdomen and pelvis. No focal abnormality to explain th; e patient's pain.; ; Outcome: 02:14 Discharge ordered by Provider. ck7 02:28 Discharge Assessment: Patient awake, alert and oriented x 3. No cognitive and/or ld5 functional deficits noted. Patient verbalized understanding of disposition instructions. patient administered narcotics - yes. Pt provided with safe discharge. The following High Risk Discharge criteria are identified: None. Discharged to home ambulatory. Condition: stable. Discharge instructions given to patient, Instructed on discharge instructions, follow up and referral plans. medication usage, no driving heavy equipment, Demonstrated understanding of instructions, medications, Pt was receptive of discharge instructions/ teaching. Prescriptions given X 2. CT Study completed. Property :Personal belongings accompany Pt. 02:31 Patient left the ED. ld5 Signatures: Dispatcher [employer] EDMS Ida Verdugo RN RN [facility] Bree Arroyo, Jessica Larson RN RN ld5 Julia Stewart Jane, RN RN [facility] Nadir Jacob, RPA-C RPA-Cck7 Johnna Sims RN RN ttb Jermaine Kendall gr2 Roxanne Jacobo RN RN [facility] Corrections: (The following items were deleted from the chart) 07/07 23:50 18:28 Allergies: no known allergies[facility] 01:09 00:58 CREATININE+LAB sent. [facility] EDMS Chart Complete MTDD
== END 2016-07-08 02:31 | disposition home or self-care (01) ==
LOC: M ED 18:15
DX: R10.9 Unspecified abdominal pain (principal); R94.4 Abnormal results of kidney function studies; R11.0 Nausea; E11.9 Type 2 diabetes mellitus without complications; E78.00 Pure hypercholesterolemia, unspecified; I10 Essential (primary) hypertension; K86.1 Other chronic pancreatitis; F17.210 Nicotine dependence, cigarettes, uncomplicated; Z79.84 Long term (current) use of oral hypoglycemic drugs; Z79.899 Other long term (current) drug therapy; Z91.041 Radiographic dye allergy status
CPT/HCPCS: 36415; 74176; 80048; 80076; 81001; 82150; 82565; 83690; 85025; 87086; 96361; 96374; 96375; 96376; 99284; J2405

== ENCOUNTER → 2017-03-01 | Outpatient (CLI) | payer BC ==
[2017-03-01 10:34] LABS: ALBUMIN/GLOBULIN RATIO 1.11 (1.00-1.93); ALKALINE PHOSPHATASE 85 U/L (45-117); ALT/SGPT 21 U/L (12-78); ANION GAP 7 MEQ/L (8-16); AST/SGOT 16 U/L (15-37); BILIRUBIN,TOTAL 0.8 MG/DL (0.2-1.0); BLOOD UREA NITROGEN 17 MG/DL (7-18); CALCIUM LEVEL 8.7 MG/DL (8.5-10.1); CARBON DIOXIDE LEVEL 30 MEQ/L (21-32); CHLORIDE LEVEL 102 MEQ/L (98-107); CHOLESTEROL LEVEL 264 MG/DL (<200); CREATININE FOR GFR 0.98 MG/DL (0.55-1.02); GLOMERULAR FILTRATION RATE > 60.0 (>51); GLUCOSE, FASTING 98 MG/DL (70-105); POTASSIUM SERUM 4.4 MEQ/L (3.5-5.1); SODIUM LEVEL 139 MEQ/L (136-145); TOTAL PROTEIN 7.6 GM/DL (6.4-8.2); TRIGLYCERIDES LEVEL 207 MG/DL (<150)
[2017-03-01 10:54] LABS: MEAN CORPUSCULAR HEMOGLOBIN 29.4 pg (27.0-33.0); MEAN CORPUSCULAR HGB CONC 32.5 g/dl (32.0-36.5); MEAN CORPUSCULAR VOLUME 90.4 fl (80.0-96.0); RED CELL DISTRIBUTION WIDTH 14.4 % (11.5-14.5)
== END ==
LOC: M LAB 09:11
PROVIDERS: ATTEND Physician Assistant Medical
DX: R53.83 Other fatigue (principal)

== ENCOUNTER 2018-03-10 15:42 | Emergency (ER) | payer BC ==
[2018-03-10 16:30] LABS: BASO # 0.1 10^3/uL (0.0-0.2); EOS # 0.6 10^3/uL (0.0-0.50); HEMATOCRIT 40.2 % (36.0-47.0); HEMOGLOBIN 13.7 g/dl (12.0-15.5); IMMATURE GRANULOCYTE % 0.4 % (0-3.0); LYMPH # 3.2 10^3/uL (1.5-4.5); LYMPH % 33.2 % (24.0-44.0); MEAN CORPUSCULAR HEMOGLOBIN 30.9 pg (27.0-33.0); MEAN CORPUSCULAR HGB CONC 34.1 g/dl (32.0-36.5); MEAN CORPUSCULAR VOLUME 90.5 fl (80.0-96.0); MONO # 0.7 10^3/uL (0.0-0.8); MONO % 7.3 % (0.0-5.0); NEUTROPHILS % 52.1 % (36.0-66.0); PLATELET COUNT, AUTOMATED 217 10^3/uL (150-450); RED BLOOD COUNT 4.44 10^6/uL (4.00-5.40); RED CELL DISTRIBUTION WIDTH 13.5 % (11.5-14.5); WHITE BLOOD COUNT 9.7 10^3/uL (4.0-10.0)
[2018-03-10] MEDS: NS 1,000 ML IV (16:44)
[2018-03-10 16:56] LABS: ALBUMIN 4.2 GM/DL (3.2-5.2); ALBUMIN/GLOBULIN RATIO 1.11 (1.00-1.93); ALKALINE PHOSPHATASE 101 U/L (45-117); ALT/SGPT 24 U/L (12-78); AMYLASE 77 U/L (25-115); ANION GAP 9 MEQ/L (8-16); AST/SGOT 20 U/L (7-37); BILIRUBIN,DIRECT < 0.1 MG/DL (0.0-0.2); BILIRUBIN,TOTAL 0.2 MG/DL (0.2-1.0); BLOOD UREA NITROGEN 20 MG/DL (7-18); CALCIUM LEVEL 9.2 MG/DL (8.5-10.1); CARBON DIOXIDE LEVEL 24 MEQ/L (21-32); CHLORIDE LEVEL 107 MEQ/L (98-107); CREATININE FOR GFR 1.19 MG/DL (0.55-1.30); GLOMERULAR FILTRATION RATE 50.1 (>51); GLUCOSE, FASTING 96 MG/DL (70-100); LIPASE 205 U/L (73-393); POTASSIUM SERUM 4.1 MEQ/L (3.5-5.1); SODIUM LEVEL 140 MEQ/L (136-145)
[2018-03-10] MEDS ORDERED: ISOVUE-370 76% 100ML VIAL (Q9967) As Ordered (17:04)
== END 2018-03-10 18:27 | disposition home or self-care (01) ==
LOC: M ED 15:42
DX: K27.9 Peptic ulcer, site unspecified, unspecified as acute or chronic, without hemorrhage or perforation (principal); K21.9 Gastro-esophageal reflux disease without esophagitis; F41.9 Anxiety disorder, unspecified; Z87.19 Personal history of other diseases of the digestive system; F17.210 Nicotine dependence, cigarettes, uncomplicated
CPT/HCPCS: Q9967

== ENCOUNTER → 2019-01-30 | Outpatient (CLI) | payer BC ==
[~2019-01-30] MED LIST changes: -/PRAV20TA PO; +CARA1TAB6 PO; +PRAV1TAB39 PO; +PROT1TAB2 PO
[2019-01-30 11:42] LABS: BASO # 0.1 10^3/uL (0.0-0.2); BASO % 1.1 % (0.0-1.0); EOS # 0.5 10^3/uL (0.0-0.50); EOS % 6.6 % (0.0-3.0); HEMATOCRIT 42.7 % (36.0-47.0); HEMOGLOBIN 14.1 g/dl (12.0-15.5); LYMPH # 2.9 10^3/uL (1.5-4.5); LYMPH % 38.4 % (24.0-44.0); MEAN CORPUSCULAR VOLUME 93.8 fl (80.0-96.0); MONO # 0.6 10^3/uL (0.0-0.8); MONO % 8.2 % (0.0-5.0); NEUTROPHILS # 3.4 10^3/uL (1.8-7.7); NEUTROPHILS % 45.4 % (36.0-66.0); PLATELET COUNT, AUTOMATED 182 10^3/uL (150-450); RED BLOOD COUNT 4.55 10^6/uL (4.00-5.40); WHITE BLOOD COUNT 7.4 10^3/uL (4.0-10.0)
[2019-01-30 11:57] LABS: HEMOGLOBIN A1c 7.9 %
[2019-01-30 12:21] LABS: ALBUMIN 3.9 GM/DL (3.2-5.2); BILIRUBIN,TOTAL 0.4 MG/DL (0.2-1.0); CALCIUM LEVEL 9.9 MG/DL (8.5-10.1); CHOLESTEROL RISK RATIO 5.562 (<5); CREATININE FOR GFR 1.08 MG/DL (0.55-1.30); GLOMERULAR FILTRATION RATE 55.9 (>51); POTASSIUM SERUM 4.3 MEQ/L (3.5-5.1); THYROID STIMULATING HORMONE 1.58 uIU/ML (0.358-3.740); THYROXINE (T4) 6.8 UG/DL (4.5-12.0); TOTAL PROTEIN 7.5 GM/DL (6.4-8.2)
== END ==
LOC: M LRY 09:37
PROVIDERS: ATTEND Nurse Practitioner Adult Health
DX: E11.9 Type 2 diabetes mellitus without complications (principal); E79.2 Myoadenylate deaminase deficiency; Z79.899 Other long term (current) drug therapy

== ENCOUNTER 2019-03-02 11:50 | Emergency (ER) | payer BC ==
[~2019-03-02] VITALS: Ht 162.6 cm; Wt 60.6 kg
[2019-03-02] MEDS ORDERED: METF500T13 (12:59)
[2019-03-02] MEDS ORDERED: KETOROLAC 30 MG/ML VIAL (J1885) IV ONE (13:30)
[2019-03-02 14:24] LABS: HEMATOCRIT 41.8 % (36.0-47.0); HEMOGLOBIN 13.9 g/dl (12.0-15.5); MEAN CORPUSCULAR HEMOGLOBIN 30.5 pg (27.0-33.0); MEAN CORPUSCULAR HGB CONC 33.3 g/dl (32.0-36.5); MEAN CORPUSCULAR VOLUME 91.9 fl (80.0-96.0); PLATELET COUNT, AUTOMATED 199 10^3/uL (150-450); RED BLOOD COUNT 4.55 10^6/uL (4.00-5.40); WHITE BLOOD COUNT 9.7 10^3/uL (4.0-10.0)
--- NOTE | 2019-03-02 14:25 | REP ---
ULTRASOUND RIGHT FLANK SOFT TISSUES: Real-time sonographic evaluation of the right flank soft tissues performed at an area of swelling. No cystic or solid nodule is seen. No fluid collection is seen. IMPRESSION: Negative ultrasound right flank soft tissues. Electronically Signed by Chan Fonseca MD 03/02/2019 04:56 P
[2019-03-02 14:53] LABS: ALT/SGPT 38 U/L (12-78); BILIRUBIN,DIRECT < 0.1 MG/DL (0.0-0.2); BILIRUBIN,TOTAL 0.3 MG/DL (0.2-1.0); LIPASE 219 U/L (73-393); TOTAL PROTEIN 7.4 GM/DL (6.4-8.2)
[2019-03-02] MEDS: GASTROGRAFIN SOLUTION 30ML PO SCH ×2 (15:10→15:11)
--- NOTE | 2019-03-02 17:24 | REP ---
CT ABDOMEN AND PELVIS WITH ORAL CONTRAST: CT abdomen and pelvis performed with oral contrast, but no IV contrast. Sagittal and coronal reconstruction images are performed. Visualized lung bases demonstrate no evidence of infiltrate. The liver demonstrates diffuse fatty infiltration. Gallbladder is grossly unremarkable. There is no definite biliary dilatation. The spleen is normal in size. Adrenals and pancreas appear grossly unremarkable. There is no hydronephrosis bilaterally. There is focal atrophy of the lower pole of the left kidney with a cyst at that location approximately 1.2 cm in diameter. There is moderate atherosclerotic calcification of the abdominal aorta without aneurysm. There is no adenopathy. There is no free air or free fluid. There is no bowel wall thickening. There is mild sigmoid diverticulosis without acute diverticulitis. There is no abdominal wall hernia. Urinary bladder is mildly distended and grossly unremarkable. No pelvic mass is seen. The patient has had a hysterectomy. IMPRESSION: No acute abnormalities. No abdominal wall hernia. Fatty infiltration of the liver. Focal atrophy and small cyst lower pole left kidney. Mild sigmoid diverticulosis without acute diverticulitis. No free air or free fluid. Electronically Signed by Chan Fonseca MD 03/03/2019 04:34 P
[2019-03-02 17:37] VITALS: BP 143/73
== END 2019-03-02 17:42 | disposition home or self-care (01) ==
LOC: M ED 11:50
DX: S39.011A Strain of muscle, fascia and tendon of abdomen, initial encounter (principal); X50.0XXA Overexertion from strenuous movement or load, initial encounter; Y92.9 Unspecified place or not applicable; R14.0 Abdominal distension (gaseous); K57.30 Diverticulosis of large intestine without perforation or abscess without bleeding; K76.0 Fatty (change of) liver, not elsewhere classified; N28.1 Cyst of kidney, acquired; E11.9 Type 2 diabetes mellitus without complications; I10 Essential (primary) hypertension; K27.9 Peptic ulcer, site unspecified, unspecified as acute or chronic, without hemorrhage or perforation; E78.5 Hyperlipidemia, unspecified; N80.8 Other endometriosis; Z78.0 Asymptomatic menopausal state; Z88.8 Allergy status to other drugs, medicaments and biological substances; Z79.899 Other long term (current) drug therapy
CPT/HCPCS: 74176; 76705; 80047; 80076; 83690; 85027; 99283; Q9963

== ENCOUNTER → 2019-08-17 | Outpatient (CLI) | payer OTHER ==
[~2019-08-17] MED LIST changes: +METF500T13
--- NOTE | 2019-08-17 12:56 | REP ---
Right ribs series five views: There is no rib fracture or other rib abnormality. There is no focal or diffuse pleural thickening. Impression: Negative right ribs series. PA chest: Comparison is 03/10/2018. There is no pneumothorax, hemothorax or pulmonary contusion. Lung miller are clear. Cardiac size is normal. The ben, mediastinum, skeletal structures are unremarkable. There is no interval change. Impression: Negative PA chest. Electronically Signed by Chan Terrazas MD 08/17/2019 12:47 P
== END ==
LOC: M LRY 12:27
PROVIDERS: ATTEND Physician Assistant
DX: S20.211A Contusion of right front wall of thorax, initial encounter (principal); X58.XXXA Exposure to other specified factors, initial encounter; Y92.89 Other specified places as the place of occurrence of the external cause

== ENCOUNTER → 2020-05-07 | Outpatient (CLI) | payer BC ==
[~2020-05-07] MED LIST changes: -ASPI81TA85 PO; +ASPI81TA86 PO
--- NOTE | 2020-05-07 16:44 | REPMRS ---
Patient History The patient states she had a clinical breast exam in 05/2020. Patient is postmenopausal. Family history of breast cancer at age 50 or over in mother. Benign ultrasound-guided core biopsy of the left breast, October 10, 2014. Took hormonal contraceptives for 2 years. Digital Woman Screen Mammo: May 07, 2020 - Exam #: [id number] Bilateral CC and MLO view(s) were taken. Technologist: Zena Wooten, Technologist Prior study comparison: June 12, 2015, left breast digital mammo diagnostic unilateral, performed at [facility]. October 02, 2014, left breast digital mammo diagnostic unilateral, performed at [facility]. FINDINGS: There are scattered fibroglandular densities. The Volpara volumetric breast density category is:B. Two needle biopsy marker clips are again noted in the left breast. There has been no change in the appearance of the mammogram from the prior studies. There is a mild amount of scattered fibroglandular density which is fairly symmetric. There is no interval development of dominant mass, architectural distortion, or grouped microcalcification suggestive of malignancy. 3-D tomosynthesis shows no additional findings. Assessment: BI-RADS/ACR category 2 mammogram. Benign Findings. Recommendation Routine screening mammogram of both breasts in 1 year (for women over age 40). This patient's [facility] Lifetime Breast Cancer Risk is estimated at 10.0 %. This mammogram was interpreted with the aid of an FDA-approved computer-aided dectection system. Electronically Signed By: Leodan Yanes MD 05/07/20 [id number]
== END ==
LOC: M WHC 12:59
PROVIDERS: ATTEND Nurse Practitioner Family
DX: Z12.31 Encounter for screening mammogram for malignant neoplasm of breast (principal); Z80.3 Family history of malignant neoplasm of breast; Z86.018 Personal history of other benign neoplasm; Z97.8 Presence of other specified devices

== ENCOUNTER → 2021-03-07 | Outpatient (CLI) | payer OTHER ==
--- NOTE | 2021-03-10 08:27 | REP ---
INDICATION: WEDGE COMPRESSION FX. Repeat dictation. Preliminary report is provided at the time of the exam by saturnino RODRIGUEZ. COMPARISON: Comparison is made with images from chest CT study November 21, 2020. TECHNIQUE: Sagittal and axial T1 and T2-weighted scans are acquired in the usual fashion with and without fat saturation. Sequences include spin echo, turbo spin-echo, and STIR imaging sequences. FINDINGS: Thoracic vertebral body heights are preserved. Alignment is normal. Cortical and medullary bone signal intensity are normal. No bony destructive lesion is seen. There is a Schmorl's node in the inferior endplate of the T11 vertebral body. Small Schmorl's nodes are also visible at T8 and T7. There are degenerative disc changes at multiple levels. There are multiple focal disc protrusions. At the T7-8 level, there is a right posterior focal disc protrusion flattening the right ventral margin of the cord with associated spurring. No spinal stenosis. At T8-9, there is also a right posterior focal disc protrusion indenting and subtly flattening the right ventral lateral margin of the cord. No spinal stenosis. At T9-10 there is a left posterior disc bulge effacing the ventral subarachnoid space. No other focal disc protrusion is seen. No neural foraminal lesion is seen. IMPRESSION: Right posterior disc protrusions at T7-8 and T8-9. Left posterior disc bulge at T9-10. <Electronically signed by Leodan Yanes > 03/10/21 [id number]
--- NOTE | 2021-03-10 08:44 | REP ---
INDICATION: WEDGE COMPRESSION FX. Repeat dictation. Preliminary report is provided at the time of the exam by saturnino MAHAJAN. COMPARISON: Comparison lumbar spine radiographs are from March 22, 2019. TECHNIQUE: Sagittal and axial T1 and T2-weighted scans are acquired in the usual fashion with and without fat saturation. Sequences include spin echo, turbo spin-echo, and STIR imaging sequences. FINDINGS: Lumbar vertebral body heights are preserved. Alignment is normal. Cortical and medullary bone signal intensity are normal. No bony destructive lesion is seen. The tip of the conus medullaris is normal in position and appearance at T12-L1. There is a left renal cyst measuring 2 cm in greatest diameter noted incidentally. Normal caliber aorta. No other extra vertebral abnormality is observed. Axial and sagittal images taken at L1-2 are unremarkable. At L2-3, there is mild degenerative narrowing of the disc and minimal central disc bulging. No other abnormality. At L3-4, there is discogenic spurring anteriorly and mild narrowing of the disc is seen. No spinal stenosis, focal disc protrusion, or foraminal narrowing is seen. At L4-5, there is mild facet hypertrophy bilaterally. No neural foraminal narrowing or spinal stenosis is noted. No disc protrusion is seen. At L5-S1, there is a small focal disc protrusion centrally indenting the ventral margin of the thecal sac slightly. No spinal stenosis or foraminal narrowing is seen. There is facet hypertrophy bilaterally. IMPRESSION: Degenerative spondylosis changes. Small central focal disc protrusion at L5-S1. No spinal stenosis or foraminal narrowing seen. <Electronically signed by Leodan Yanes > 03/10/21 [id number]
== END ==
LOC: M PLAIMG 14:14
PROVIDERS: ATTEND Physician Assistant Surgical
DX: R93.7 Abnormal findings on diagnostic imaging of other parts of musculoskeletal system (principal); S22.080A Wedge compression fracture of T11-T12 vertebra, initial encounter for closed fracture

== ENCOUNTER → 2021-04-08 | Outpatient (CLI) | payer BC ==
--- NOTE | 2021-04-08 15:50 | REP ---
INDICATION: OTH DISC DEGENERATION, R/O OCCULT FX. COMPARISON: None TECHNIQUE: 3T multiplanar MRI imaging of the sacrococcygeal region was obtained using various sequences. FINDINGS: The cortical and marrow signal seen throughout the sacrum and coccyx is within normal limits. There is no evidence of a mass or mass effect. There is no evidence of abnormal pre sacral signal or fluid. The sacroiliac joints are within normal limits. There is no abnormal fluid or signal. The surrounding musculature is within normal limits. There is mild to moderate bilateral L5-S1 facet joint DJD. Although not performed for the lumbar spine there is evidence of disc hydration loss at L5-S1 consistent with chronic change. IMPRESSION: No acute abnormalities identified. Findings as described above. <Electronically signed by Keyur Manning > 04/08/21 [id number]
== END ==
LOC: M PLAIMG 08:53
PROVIDERS: ATTEND Physician Assistant Surgical
DX: M51.34 Other intervertebral disc degeneration, thoracic region (principal)

== ENCOUNTER → 2021-07-14 | Outpatient (CLI) | payer BC | LOC: M RAD 13:21 | PROVIDERS: ATTEND Nurse Practitioner Family | DX: R05.3 Chronic cough (principal) ==

== ENCOUNTER → 2021-08-25 | Outpatient (CLI) | payer BC | LOC: M RAD 13:33 | PROVIDERS: ATTEND Nurse Practitioner Family | DX: M54.59 Other low back pain (principal) ==

== ENCOUNTER → 2021-09-23 | Outpatient (CLI) | payer BC | LOC: M PLAIMG 10:04 | PROVIDERS: ATTEND Nurse Practitioner Family | DX: M54.50 Low back pain, unspecified (principal) ==

== ENCOUNTER → 2021-10-01 | Outpatient (CLI) | payer BC ==
[~2021-10-01] MED LIST changes: +ALBU8.5H INH; +ALLE10TA28 PO; +FLUT1BLS8 INH; +LISI10TA22 PO; -METF500T13; +METF500T13 PO; +PIOG1TAB36 PO; +TOUJ1.2I SC; +vitafusion PO
== END ==
LOC: M LABSMTC 11:49
PROVIDERS: ATTEND Anesthesiology
DX: Z01.818 Encounter for other preprocedural examination (principal); Z11.52 Encounter for screening for COVID-19

== ENCOUNTER 2021-10-06 08:24 | Day surgery (SDC) | payer BC ==
[~2021-10-06] VITALS: Ht 152.4 cm; Wt 60.2 kg
[~2021-10-06 08:24] MED LIST changes: +NS 1,000 ML IV ONE
[2021-10-06] MEDS ORDERED: fentaNYL 100 MCG/2 ML INJECTION As Ordered ONE (09:36)
[2021-10-06] MEDS ORDERED: propofoL 500 MG/50 ML VIAL As Ordered ONE (09:40)
[2021-10-06] MEDS ORDERED: LIDOCAINE 2% 100MG/5ML SDV (FOR ANES.) As Ordered ONE (10:00)
[2021-10-06] MEDS ORDERED: propofoL 200 MG/20 ML VIAL As Ordered ONE (10:11)
[2021-10-06 11:01] VITALS: BP 135/86
== END 2021-10-06 11:02 | disposition home or self-care (01) ==
LOC: M OPP 08:24
PROVIDERS: ATTEND Internal Medicine Gastroenterology
DX: Z12.11 Encounter for screening for malignant neoplasm of colon (principal); K63.5 Polyp of colon; K64.8 Other hemorrhoids; K21.00 Gastro-esophageal reflux disease with esophagitis, without bleeding; K29.70 Gastritis, unspecified, without bleeding; K22.70 Barrett's esophagus without dysplasia; R12 Heartburn; K74.60 Unspecified cirrhosis of liver; G47.30 Sleep apnea, unspecified; Z79.4 Long term (current) use of insulin; Z79.51 Long term (current) use of inhaled steroids; Z79.899 Other long term (current) drug therapy; Z88.8 Allergy status to other drugs, medicaments and biological substances; Z80.51 Family history of malignant neoplasm of kidney; Z85.3 Personal history of malignant neoplasm of breast; Z80.6 Family history of leukemia; Z87.891 Personal history of nicotine dependence
CPT/HCPCS: 43239; 45385; 88305; J3010

== ENCOUNTER 2022-06-18 08:36 | Emergency (ER) | payer BC ==
[~2022-06-18] VITALS: Ht 154.9 cm; Wt 62.2 kg
[~2022-06-18 08:36] MED LIST changes: -NS 1,000 ML IV ONE
[2022-06-18 13:34] LABS: BASO % 0.6 % (0.0-1.0); EOS # 0.3 10^3/uL (0.0-0.5); HEMOGLOBIN 14.2 g/dl (12.0-15.5); LYMPH # 1.6 10^3/uL (1.5-5.0); LYMPH % 22.2 % (24.0-44.0); MEAN CORPUSCULAR HEMOGLOBIN 29.7 pg (27.0-33.0); MEAN CORPUSCULAR HGB CONC 32.3 g/dl (32.0-36.5); MEAN CORPUSCULAR VOLUME 92.1 fl (80.0-96.0); MONO # 0.4 10^3/uL (0.0-0.8); MONO % 5.9 % (2.0-8.0); NEUTROPHILS # 4.9 10^3/uL (1.5-8.5); PLATELET COUNT, AUTOMATED 240 10^3/uL (150-450); RED BLOOD COUNT 4.78 10^6/uL (4.00-5.40); WHITE BLOOD COUNT 7.3 10^3/uL (4.0-10.0)
[2022-06-18 13:58] LABS: MAGNESIUM LEVEL 2.1 MG/DL (1.8-2.4)
[2022-06-18 13:59] LABS: CALCIUM LEVEL 10.5 MG/DL (8.3-10.6); CREATININE FOR GFR 1.15 MG/DL (0.55-1.30); GLOMERULAR FILTRATION RATE 51.2 (>45); POTASSIUM SERUM 4.7 MMOL/L (3.5-5.1)
[2022-06-18] MEDS ORDERED: CLIN1GEL22 TOP (14:44)
[2022-06-18 14:55] VITALS: BP 136/63
== END 2022-06-18 15:20 | disposition home or self-care (01) ==
LOC: M ED 08:36
DX: M43.07 Spondylolysis, lumbosacral region (principal); M54.17 Radiculopathy, lumbosacral region; M54.42 Lumbago with sciatica, left side; E11.9 Type 2 diabetes mellitus without complications; I10 Essential (primary) hypertension; E78.5 Hyperlipidemia, unspecified; J45.909 Unspecified asthma, uncomplicated; K21.9 Gastro-esophageal reflux disease without esophagitis; Z88.1 Allergy status to other antibiotic agents; Z87.891 Personal history of nicotine dependence; Z79.84 Long term (current) use of oral hypoglycemic drugs; Z79.51 Long term (current) use of inhaled steroids

== ENCOUNTER → 2022-07-07 | Outpatient (CLI) | payer BC ==
[~2022-07-07] MED LIST changes: +CLIN1GEL22 TOP
== END ==
LOC: M RAD 13:23
PROVIDERS: ATTEND Nurse Practitioner Family
DX: Z87.891 Personal history of nicotine dependence (principal)

== ENCOUNTER → 2022-12-15 | Outpatient (CLI) | payer BC | LOC: M WHC 10:03 | PROVIDERS: ATTEND Nurse Practitioner Family | DX: Z12.31 Encounter for screening mammogram for malignant neoplasm of breast (principal) ==

== ENCOUNTER → 2023-12-15 | Outpatient (CLI) | payer BC | LOC: M RAD 13:02 | PROVIDERS: ATTEND Registered Nurse | DX: Z87.891 Personal history of nicotine dependence (principal) ==

== ENCOUNTER → 2024-02-25 | Outpatient (CLI) | payer BC | LOC: M RAD 14:26 | PROVIDERS: ATTEND Registered Nurse | DX: J01.90 Acute sinusitis, unspecified (principal) ==

== ENCOUNTER → 2024-09-18 | Outpatient (CLI) | payer BC, MEDICAID, OTHER, SELFPAY ==
[2024-09-18 11:02] LABS: HEMOGLOBIN A1c 6.8 % (4.0-6.0)
[2024-09-18 11:20] LABS: ALBUMIN 3.8 G/DL (3.2-5.2); BILIRUBIN,TOTAL 0.6 MG/DL (0.3-1.2); CALCIUM LEVEL 9.6 MG/DL (8.3-10.6); CHOLESTEROL RISK RATIO 3.49 (<5); GLOMERULAR FILTRATION RATE 63.7 (>45); HDL CHOLESTEROL 53.2 MG/DL (>40); LDL CHOLESTEROL 99.6 MG/DL (<100); NON-HDL-C 132.8 MG/DL; POTASSIUM SERUM 4.3 MMOL/L (3.5-5.1); TOTAL PROTEIN 6.9 G/DL (5.7-8.2)
== END ==
LOC: M LAB 09:53
PROVIDERS: ATTEND Registered Nurse
DX: E11.65 Type 2 diabetes mellitus with hyperglycemia (principal)

== ENCOUNTER → 2025-04-06 | Outpatient (CLI) | payer OTHER ==
[~2025-04-06] MED LIST changes: +BENZ200C70 PO; +CETI10CH PO; +CLIN-250 PO; +DOXY100T PO; +PRED20TA PO
== END ==
LOC: M RAD 14:10
PROVIDERS: ATTEND Registered Nurse
DX: R05.9 Cough, unspecified (principal)

== ENCOUNTER 2025-04-30 09:21 | Emergency (ER) | payer OTHER ==
[~2025-04-30] VITALS: Ht 152.4 cm; Wt 65.9 kg
[2025-04-30 10:15] LABS: KETONE, URINE AUTO RFX NEGATIVE (NEGATIVE); LEUKOCYTE ESTERASE UR AUTO RFX NEGATIVE (NEGATIVE); NITRITE, URINE AUTO RFX NEGATIVE (NEGATIVE); RBC, URINE AUTO RFX 0 /HPF (0-3); SQUAM EPITHELIAL CELL UR AURFX 0 /HPF (0-6); WBC, URINE AUTO RFX 0 /HPF (0-3)
[2025-04-30] MEDS: NS (Normal Saline) 0.9% 1,000 ML IV ONE (11:50)
[2025-04-30 11:59] LABS: BASO # 0.1 10^3/uL (0.0-0.2); BASO % 1.2 % (0.0-1.0); EOS # 0.6 10^3/uL (0.0-0.5); EOS % 8.3 % (0.0-3.0); LYMPH # 2.2 10^3/uL (1.5-5.0); LYMPH % 33.0 % (24.0-44.0); MONO # 0.6 10^3/uL (0.0-0.8); MONO % 8.4 % (2.0-8.0); NEUTROPHILS # 3.3 10^3/uL (1.5-8.5); NEUTROPHILS % 48.8 % (36.0-66.0); PLATELET COUNT, AUTOMATED 200 10^3/uL (150-450)
[2025-04-30] MEDS ORDERED: ISOVUE-370 76% 100 ML VIAL As Ordered ONE (12:04)
[2025-04-30 12:31] LABS: ALT/SGPT 16 U/L (7.0-40); AST/SGOT 23 U/L (<34)
[2025-04-30 13:32] LABS: CK-MB VALUE MASS 1.0 NG/ML (<3.6)
[2025-04-30 13:37] LABS: CPK CREATINE PHOSPHOKINASE 93 U/L (34-145); MB/CK RELATIVE INDEX 1.07 (< OR =4)
[2025-04-30 13:57] VITALS: TEMP 96.9
[2025-04-30 14:05] VITALS: BP 140/64; O2SAT 98
== END 2025-04-30 14:04 | disposition home or self-care (01) ==
LOC: M ED 09:21
DX: R10.A1 Flank pain, right side (principal); K57.30 Diverticulosis of large intestine without perforation or abscess without bleeding; N26.1 Atrophy of kidney (terminal); E11.9 Type 2 diabetes mellitus without complications; I10 Essential (primary) hypertension; E78.5 Hyperlipidemia, unspecified; K21.9 Gastro-esophageal reflux disease without esophagitis; K85.80 Other acute pancreatitis without necrosis or infection; Z90.89 Acquired absence of other organs; Z90.710 Acquired absence of both cervix and uterus; F17.200 Nicotine dependence, unspecified, uncomplicated; Z88.1 Allergy status to other antibiotic agents; Z88.2 Allergy status to sulfonamides; Z79.4 Long term (current) use of insulin; Z79.899 Other long term (current) drug therapy; Z79.84 Long term (current) use of oral hypoglycemic drugs
CPT/HCPCS: 74177; 80047; 80076; 81001; 82550; 82553; 83690; 84484; 85025; 93005; 96360; 96361; 99284; Q9967